=== PATIENT | female | born 1965 | race Caucasian/White ===

== ENCOUNTER 2023-06-25 17:12 | Emergency (ER) | payer OTHER, SELFPAY ==
--- NOTE | 2023-06-25 17:41 | ED.FALL ---
HPI - Fall General Chief Complaint: Fall Stated Complaint: fell,knee pain, nose bleed Time Seen by Provider: 06/25/23 18:30 Source: patient and family Mode of arrival: wheelchair Limitations: no limitations History of Present Illness HPI Narrative: 57 yo female with past medical history of HTN, HLD here with complaints of fall after she tripped over her dog. No LOC. Landed on her right knee and hit her nose on a chair. Here c/o headache, right knee pain, nasal pain/laceration. No AC therapy use. Denies chest pain, shortness of breath, abdominal pain, vision changes, nausea, vomiting, back or neck pain. Tetanus UTD. Related Data Previous Rx's Medication Instructions Recorded ibuprofen 600 mg tablet 600 mg PO Q8H PRN fever or pain 06/25/23 #30 tabs Allergies Allergy/AdvReac Type Severity Reaction Status Date / Time shellfish derived Allergy Unknown Verified 06/25/23 17:44 Review of Systems Review of Systems: Yes all other systems are reviewed and are negative Constitutional: Constitutional: Reports no additional constitutional complaints, Denies body ache(s), Denies chills, Denies fever(s), Reports headache(s) and Denies weakness Eyes: Eyes: Reports no additional eye complaints and Denies change in vision ENT: Reports system reviewed and no additional complaints, except as documented, Denies dizziness, Reports headache(s), Reports epistaxis, Denies nasal congestion, Denies nasal discharge, Reports nasal trauma and Denies neck pain Cardiovascular: Cardiovascular: Reports no additional cardiovascular complaints, Denies chest pain, Denies leg edema and Denies dyspnea Respiratory: Respiratory: Reports no additional respiratory complaints, Denies cough and Denies dyspnea Gastrointestinal: Gastrointestinal: Reports no additional gastrointestinal complaints, Denies abdominal pain, Denies diarrhea, Denies nausea and Denies vomiting Genitourinary: Genitourinary: Reports no additional female genitourinary complaints and Denies urinary incontinence Musculoskeletal: Musculoskeletal: Reports no additional musculoskeletal complaints, Denies back pain, Reports arthralgias, Denies joint swelling, Denies neck pain, Denies numbness and Denies tingling Integumentary/Breasts: Skin/Breast: Reports system reviewed and no additional complaints, except as docu and Denies rash Neurologic: Reports system reviewed and no additional complaints, except as documented, Denies Abnormal speech present, Denies dizziness, Reports headache(s), Denies numbness, Denies tingling and Denies weakness PMFSH Past Medical History Attestation statement: The following information was validated with the patient. Source: old records reviewed and nursing notes reviewed Onset Date is defined in the Problem List Problems that require an onset date and time if occurred within 24 hrs of arrival to the ED Aortic Dissection and Rupture; Neurologic impairment; Cardiopulmonary Arrest; Endotracheal Intubation; Insertion or Replacement of Mechanical Circulatory Assist Device Social History Social History Advance Directives: No Advance Directives Information Provided: No Physical Exam Vital Signs: Vital Signs: Last Vital Signs Pulse 86 06/25/23 17:43 Resp 18 06/25/23 17:43 BP 138/83 06/25/23 17:43 Pulse Ox 99 06/25/23 17:43 O2 Del Method Room Air 06/25/23 17:43 BMI result Body Mass Index 47.3 Const: General: cooperative, healthy appearing, comfortable and no acute distress Orientation/consciousness: patient oriented x3 Limitations: no limitations HEENT: Other: no hemotympanus Head: Yes normal to inspection, No Abreu's sign and No raccoon eyes Ears: hearing grossly normal bilaterally and TM's normal bilaterally General nose exam: Normal external nose present and Epistaxis present Nose image: 1. +abrasion Nasal bridge swelling, ecchymosis Face and sinus: Yes normal facial exam Mouth: Normal oral and palatal mucosa present Throat: Yes posterior oropharynx normal Eyes: General: appearance normal, both eyes and all related structures Pupils: Equal, round and reactive pupils present Neck: Neck: Yes normal visual inspection Chest: Chest palpation & inspection: normal inspection of the chest Resp: Effort & Inspection: normal respiratory effort Auscultation: clear to auscultation bilaterally Cardio: Rate: regular rate Rhythm: regular rhythm Peripheral pulses: Peripheral pulses 2+ throughout GI: Inspection: Yes normal to inspection Palpation (GI): Soft to palpation and nontender Auscultation: normal bowel sounds Back/Spine/Pelvis: Thoracic/Lumbar Spine: thoracic and lumbar spine normal to inspection Skin: General skin exam: no rashes or lesions noted Neuro: General: patient oriented x3, moves all extremities, no focal motor deficits and normal sensation to monofilament Cranial nerves: Yes CN's II-XII intact bilaterally, Yes Equal, round and reactive pupils present, Yes Bilaterally intact EOM present, Yes Nystagmus not present, Yes Normal facial strength present and Yes Midline tongue present Cognition (Neuro): normal cognition Speech: No Abnormal speech present Gait exam (Neuro): Normal gait present Motor exam (neuro): 5/5 motor strength present throughout Sensory Exam: Normal double simultaneous stimulation for sensation Extrem: Other: +ecchymosis /swelling to right anterior knee with limited flexion d/t pain 2+ DP/PT pulses Normal distal sensation FROM distal foot/ankle General: Yes normal to inspection Course Course Course Narrative: This is a rapid medical exam. Deferred additional HPI, ROS, PE to primary provider. 57 yo female with past medical history of HTN, HLD here with complaints fall after she tripped over her dog. No LOC. Here c/o headache, right knee pain, nasal pain/laceration. Tetanus UTD. Will obtain CT head/facial bones/cervical, knee x-ray. VSS Reevaluation(s) Reevaluation #1: 2042- Reviewed CT findings. reviewed x-ray results. epistaxis is controlled. patient discharged home with Jay wrap, crutches and recommendations follow up outpatient with ENT. Reviewed worrisome signs and symptoms of when to return to the emergency room. Comfortable plan for discharge home. Medications Administered Discontinued Medications Generic Name Dose Route Start Last Admin Trade Name Freq PRN Reason Stop Dose Admin Acetaminophen 975 mg 06/25/23 17:44 06/25/23 17:47 Acetaminophen 325 Mg Tablet PO 06/25/23 17:45 975 mg ONCE ONE Administration Oxycodone HCl 5 mg 06/25/23 19:12 06/25/23 19:43 Oxycodone Hcl Immed Release 5 Mg Tablet PO 06/25/23 19:13 5 mg ONCE ONE Administration Oxymetazoline HCl 2 spray 06/25/23 19:12 06/25/23 19:45 Oxymetazoline Hcl 0.05 % Nasal 15 Ml [place] NOSTRIL-B 06/25/23 19:13 2 spray ONCE ONE Administration Procedures Orthopedic Splinting/Casting Injury #1: Side: right Lower Extremity Injury Location: lower leg Lower Extremity Immobilizer: Jay wrap Other Orthopedic Equipment: crutches Medical Decision Making Medical Decision Making MDM Narrative: 57 yo female with past medical history of HTN, HLD here with complaints of fall after she tripped over her dog. No LOC. Landed on her right knee and hit her nose on a chair. Here c/o headache, right knee pain, nasal pain/laceration. No AC therapy use. Denies chest pain, shortness of breath, abdominal pain, vision changes, nausea, vomiting, back or neck pain. Tetanus UTD. +ecchymosis /swelling to right anterior knee with limited flexion d/t pain. 2+ DP/PT pulses. Normal distal sensation. FROM distal foot/ankle. Abrasion to bridge of the nose with epistaxis-slight bilaterally. Swelling/ecchymosis to bridge of the nose. Normal neuro exam. VSS Will obtain x-rays of right knee, CT head/cervical spine/facial bones Will give analgesia, afrin for epistaxis Differential Diagnosis Differential Diagnoses: The differential diagnosis associated with the presentation includes nasal fracture, contusion, ICH, physeal or skull fracture, concussion knee fracture, dislocation, vascular injury, dislocation, contusion Admission/Observation Consideration of admission/observation: Escalation of care including admission/observation considered low concern for vascular injury, dislocation, complex fracture requiring advanced imaging. Low concern for ICH, basilar skull fracture requiring neurosurgery consultation and or transfer to a tertiary care center. Independent Interpretation I performed an independent interpretation of an: Plain X-Ray and CT Scan Interpretation: I independently reviewed the x-ray/CT head/cervical spine/facial bones and agree with the radiology report Radiology Impression Discussion of test interpretation with radiology: I have reviewed the radiologist's reading. Radiologist Impression: [place] [id number] XRay Report Signed Patient: Terri De La Paz MR#: [id number] : 1965 Acct:[id number] Age/Sex: 57 / F ADM Date: 06/25/23 Loc: HO.ED Attending Dr: Ordering Physician: Mary Bridges NP Date of Service: 06/25/23 Procedure(s): XR knee RT 3V Accession Number(s): [id number] cc: Physician,Unknown ; Mary Bridges NP~ EXAMINATION: XR KNEE, RIGHT CLINICAL INFORMATION: Knee pain after fall COMPARISON: None available. TECHNIQUE: Four views of the right knee. FINDINGS: There is marked prepatellar soft tissue swelling. No fracture or joint effusion. Alignment is anatomic. Joint spaces are maintained. No abnormal soft tissue calcification. XR/XR knee RT 3V IMPRESSION: Prepatellar soft tissue swelling without fracture. [place] [id number] [place] [address] CT Scan Report Signed Patient: Terri De La Paz MR#: [id number] : 1965 Acct:[id number] Age/Sex: 57 / F ADM Date: 06/25/23 Loc: HO.ED Attending Dr: Ordering Physician: Mary Bridges NP Date of Service: 06/25/23 Procedure(s): CT facial bones wo IV con Accession Number(s): [id number] cc: Physician,Unknown ; Mary Bridges NP~ EXAMINATION: CT HEAD WITHOUT CONTRAST CT FACIAL BONES WITHOUT CONTRAST CT CERVICAL SPINE WITHOUT CONTRAST CLINICAL INFORMATION: Fall. Pain. COMPARISON: None available. TECHNIQUE: Imaging was performed from the skull base to vertex without intravenous administration of contrast. In addition, helical noncontrast CT imaging was acquired through the cervical spine and facial bones and source images were reviewed along with axial reconstructions and sagittal and coronal MPRs. This CT examination was performed using dose optimization techniques as appropriate, variously including the following: *Automated exposure control. *Adjustment of mA and/or kV according to patient size (this includes techniques or standardized protocols for targeted exams where dose is matched to indication/reason for exam; i.e. extremities or head). *Use of iterative reconstruction technique. DLP: 2033 mGy-cm FINDINGS: Head: There is no evidence of acute intracranial hemorrhage or edematous territorial infarction. Bhatia-white matter differentiation is preserved. There is no abnormal attenuation within the brain parenchyma. The ventricles are normal in morphology and size. No evidence for obstructive hydrocephalus. No abnormal mass effect or midline shift. No extra-axial fluid collections. No acute soft tissue or osseous abnormalities. Maxillofacial Bones: Mildly displaced comminuted fractures of the bilateral nasal bones. Mild to moderate rightward nasal septal deviation with apparent fracture. Layering blood products within the left greater than right maxillary sinuses and throughout the nasal passages. Moderate hematoma along the nasal bridge. No evidence of additional maxillofacial bone fractures. The zygomatic arches remain intact. No evidence of mandibular or maxillary fracture. The mandibular condyles remain well-seated in their respective temporal articular grooves. Normal appearance of the intraconal and extraconal fat. No evidence of traumatic injury to the extraocular musculature or globes. The mastoid air cells and middle ear cavities are clear. Cervical Spine: The atlantooccipital and atlantoaxial articulations remain well aligned. Moderate degenerative arthropathy of the atlantodental articulation. Straightening of the normal cervical lordosis. Otherwise, there is anatomic alignment of the vertebral bodies and posterior elements. No evidence of acute fracture or subluxation. The vertebral body heights are maintained. Advanced degenerative disc disease at C5-C6. Moderate degenerative disc disease at C6-C7. Facet and uncovertebral joint arthropathy leads to mild osseous encroachment on the neural foramina from C5-C7. There is no prevertebral soft tissue swelling. There is a 2.1 cm hypoattenuating nodule in the right thyroid lobe. The remaining cervical soft tissues are within normal limits. The lung apices demonstrate no abnormalities. CT/CT facial bones wo IV con IMPRESSION: 1. No evidence of acute intracranial hemorrhage or edematous territorial infarction. 2. No evidence of acute fracture or traumatic subluxation of the cervical spine. 3. Mildly displaced comminuted fractures of the bilateral nasal bones. Mild to moderate rightward nasal septal deviation with apparent fracture. Layering blood products within the left greater than right maxillary sinuses and throughout the nasal passages. 4. There is a 2.1 cm nodule in the right thyroid lobe. Recommend further characterization with thyroid ultrasound. Independent Historian Clinical information obtained from an independent historian. History obtained from or confirmed by: Spouse Tests considered The following testing was considered but not selected: low concern for vascular injury, dislocation, complex fracture requiring advanced imaging. Prescription Management I considered prescription management with: Pain Medication Discharge Plan Discharge Clinical Impression: Closed fracture nasal bone, Contusion of knee, right Patient Disposition: Home, Self-Care Instructions: Nasal Fracture (ED), Contusion in Adults (ED) Additional Instructions: the x-rays of your knee show no fracture. You do have some swelling on exam. You should use the Jay wrap and crutches for comfort as needed. After a few days start to perform range of motion of her knee. Apply ice, elevate the knee. Your CT of her face shows a nasal fracture. We are giving you a referral to follow-up with ear nose and throat to make sure that this is healing okay and to see if you would be a surgical candidate. Apply ice to the area. you may have some slight nose bleeding. You may apply direct pressure to this and use the spray as directed. Your CT also showed incidental finding of a thyroid nodule. You will need to follow-up with her primary care doctor for outpatient thyroid ultrasound. Please return for any severe headache, vomiting, uncontrolled nosebleed Prescriptions: New ibuprofen 600 mg tablet 600 mg PO Q8H PRN (Reason: fever or pain) Qty: 30 0RF Referrals: [facility] [Provider Group] - 1 week Physician,Unknown J [Primary Care Provider] - 1 week
[2023-06-25 17:43] VITALS: BP 138/83; PULSE 86; RESP 18; O2SAT 99; BMI 47.3
[2023-06-25 21:20] VITALS: BP 96/67; PULSE 87; RESP 20; TEMP 36.8; O2SAT 99
--- NOTE | 2023-06-25 22:20 | PC.NURSE ---
Patient now c/o of nausea and dizziness.
[2023-06-25 22:53] VITALS: BP 113/69; PULSE 83; RESP 16; O2SAT 95
--- NOTE | 2023-06-25 23:54 | PC.NURSE ---
IVF infusion has been completed. pt reports improvement in dizziness and nausea that felt s/p PO oxycodone; states this is the 2nd time she's had this medication and both times she felt the same way upon sitting upright. She has since been able to get herself dressed and ambulate to and from the restroom with use of cane but no physical assistance required. After disussion with the pt plan for allergies/adverse reactions to be updated to include oxycodone to prevent future administration if possible.
== END 2023-06-26 00:23 | disposition home or self-care (01) ==
PROVIDERS: Emergency Provider Emergency Medicine
DX: S02.2XXA Fracture of nasal bones, initial encounter for closed fracture (principal); S80.01XA Contusion of right knee, initial encounter; W01.0XXA Fall on same level from slipping, tripping and stumbling without subsequent striking against object, initial encounter; R42 Dizziness and giddiness; R51.9 Headache, unspecified; I10 Essential (primary) hypertension; Y93.9 Activity, unspecified; Y92.019 Unspecified place in single-family (private) house as the place of occurrence of the external cause; Y99.9 Unspecified external cause status
CPT/HCPCS: 70450; 70486; 72125; 73562; 96361; 96374; 99284; J2405

== ENCOUNTER 2025-03-06 14:03 | Outpatient (REF) | payer OTHER, SELFPAY ==
--- OUTSIDE RECORDS SUMMARY | 2025-03-06 17:47 | XMS_ITS | Encounter Summary ---
Author Organization [facility], Address [address] [place] [address] Phone Care Team Providers Care Boss Miner Name Role Phone Juana Rodriguez NP Primary Care Provider [phone] Encounter Details Date Type Department Care Team (Late st Contact Info) Description 11/02/2024 Office Communication [facility], - Carmen Moctezuma [address] [place] [phone] Horace Reynaga MD [address] [facility] [place] [address] Social History Tobacco Use Types Packs/Day Years Used Date Smoking Tobacco: Never Assessed Comments Unknown Sex and Gender Information Value Date Recorded Sex Assigned at Not on file Legal Sex Female 3:28 PM EDT Gender Identity Not on file Sexual Orientation Not on file documented as of this encounter Plan of Treatment Not on file documented as of this encounter Visit Diagnoses Not on filedocumented in this encounter Care Teams Boss Miner Relationship Specialty Start Date End Date Juana Rodriguez NP [address] [place] [address] PCP - General 10/31/24 documented as of this encounter
--- OUTSIDE RECORDS SUMMARY | 2025-03-06 17:47 | XMS_ITS | Encounter Summary ---
Author Organization [facility] Address [address] [place] [address] [place] [phone] Phone Care Team Providers Care Mainspring Torque Tester Name Role Phone Xiomara Padgett Primary Care Provider Ángela Mason MD Unavailable Penelope Quintanilla MD Unavailable Dodie Norman Primary Care Provider Qiana Carmichael MD Unavailable Silvana Paz MD Primary Care Provid er Juana Rodriguez NP Primary Care Provider Essence Chung Unavailable Encounter Details Date Type Department Care Team (Late st Contact Info) Description 07/03/2020 [facility], Ct Scan - [facility] [address] [place] [address] Social History Tobacco Use Types Packs/Day Years Used Date Smoking Tobacco: Never Smokeless Tobacco: Never Alcohol Use Standard Drinks/Week Comments Yes 0 (1 standard drink = 0.6 oz pur e alcohol) very little Comments No Sex and Gender Information Value Date Recorded Sex Assigned at Female 04/22/2018 1:20 PM EDT Legal Sex Female 9:41 PM EDT Gender Identity Female 04/22/2018 1:20 PM EDT Sexual Orientation Straight 04/22/2018 1: 20 PM EDT documented as of this encounter Plan of Treatment Not on file documented as of this encounter Visit Diagnoses Not on filedocumented in this encounter Care Teams Mainspring Torque Tester Relationship Specialty Start Date End Date Xiomara Padgett PA [address] [place] [address] [email or web address] PCP - General 01/23/20 05/05/21 Dodie Norman PA [address] [place] [phone] [email or web address] PCP - General Unknown Provider Specialty 05/06/21 11/10/21 Silvana Paz MD [address] [place] [phone] [email or web address] PCP - General Family Medicine 11/11/21 01/09/23 Juana Rodriguez NP [address] [place] [phone] [email or web address] PCP - General Nurse Practitioner 01/16/23 Ángela Mason MD [address] [place] [phone] [email or web address] Referring Physician Internal Medicine 04/04/20 Penelope Quintanilla MD [address] [place] [phone] [email or web address] Primary Oncologist Hematology and Oncology 04/16/20 07/05/21 Qiana Carmichael MD [address] [place] [address] [email or web address] Consulting Provider Hematology 09/19/21 12/23/22 Essence Chung MBBS [address] [place] [phone] [email or web address] Primary Oncologist Medical Oncology 03/09/24 [facility] Primary Care Physician 01/10/23 documented as of this encounter Additional Source Comments The information contained in this document represents components of the legal health record. It is not the complete legal health record.[facility]
--- OUTSIDE RECORDS SUMMARY | 2025-03-06 17:47 | XMS_ITS | Encounter Summary ---
Author Organization [facility] Address [address] [place] [phone] Phone Care Team Providers Care Lighter Captain Name Role Phone Xiomara Padgett Primary Care Provider Ángela Mason MD Unavailable Penelope Quintanilla MD Unavailable Dodie Norman Primary Care Provider Qiana Carmichael MD Unavailable Silvana Paz MD Primary Care Provid er Juana Rodriguez NP Primary Care Provider Essence Chung Unavailable [phone] Encounter Details Date Type Department Care Team (Late st Contact Info) Description 07/18/2020 Ancillary Orders Virtual Department [address] [place] [address] Xiomara Padgett PA [address] [place], [place] [phone] [email or web address] Liver lesion; Liver mass; Abnormal findings on diagnostic imaging of liver and biliary tract Social History Tobacco Use Types Packs/Day Years [...] documented as of this encounter Visit Diagnoses Diagnosis Liver lesion Other specified disorders of liver Liver mass Unspecified disorder of liver Abnormal findings on diagnostic imaging of liver and biliary tract documented in this encounter Care Teams Lighter Captain Relationship Specialty Start Date End Date Xiomara Padgett PA [address] [place] [phone] [email or web address] PCP - General 01/23/20 05/05/21 Dodie Norman PA [address] [place] [phone] [email or web address] PCP - General Unknown Provider Specialty 05/06/21 11/10/21 Silvana Paz MD [address] [place] [phone] [email or web address] PCP - General Family Medicine 11/11/21 01/09/23 Juana Rodriguez NP [address] [place] [phone] [email or web address] PCP - General Nurse Practitioner 01/16/23 Ángela Mason MD [address] [place] [phone] [email or web address] Referring Physician Internal Medicine 04/04/20 Penelope Quintanilla MD [address] [place] [phone] [email or web address] Primary Oncologist Hematology and Oncology 04/16/20 07/05/21 Qiana Carmichael MD [address] [place] [address] [email or web address] Consulting Provider Hematology 09/19/21 12/23/22 Essence Chung MBBS [address] [place] [phone] [email or web address] Primary Oncologist Medical Oncology 03/09/24 [facility] Primary Care Physician 01/10/23 documented as of this encounter Additional Source Comments The information contained in this document represents components of the legal health record. It is not the complete legal health record.[facility]
--- OUTSIDE RECORDS SUMMARY | 2025-03-06 17:47 | XMS_ITS | Encounter Summary ---
Author Organization [facility] Address [address] [place] [address] Phone Care Team Providers Care Stoper Name Role Phone Juana Rodriguez NP Primary Care Provider [phone] Encounter Details Date Type Department Care Team (Late st Contact Info) Description 10/31/2024 Documentation Only [facility], [address] [place] [address] [place], [place] [address] [place] [address] Social History Tobacco Use Types Packs/Day Years [...] on filedocumented in this encounter Care Teams Stoper Relationship Specialty Start Date End Date Juana Rodriguez NP [address] [place] [phone] PCP - General 10/31/24 documented as of this encounter
--- OUTSIDE RECORDS SUMMARY | 2025-03-06 17:47 | XMS_ITS | Encounter Summary ---
Author Organization [facility] Address [address] [place] [address] [place] [phone] Phone Care Team Providers Care Director Oncology Name Role Phone Ángela Mason MD Unavailable [phone] Juana Rodriguez SIGNAL OPERATOR TECHNICAL Primary Care Provider Essence Chung Unavailable [phone] Encounter Details Date Type Department Care Team (Late st Contact Info) Description 01/16/2024 Transcribe Orders Virtual Department [address] [place] [address] Ángela Gordon PA [address] [place] [phone] [email or web address] Breast screening (Primary Dx) Social History Tobacco Use Types Packs/Day Years Used Date Smoking Tobacco: Never Smokeless Tobacco: Never Alcohol Use Standard Drinks/Week Comments Yes 0 (1 standard drink = 0.6 oz pur e alcohol) very little Child or Family Care Answer Date Record ed Do you have problems with on e of the following making it difficult for you to work, study, or receive health care? No 07/07/2021 Education Answer Date Recorded Are you interested in more education? Not on jayme e 07/08/2023 Are you concerned about learning? Not on file 07/08/2023 No 07/08/2023 No 07/08/2023 Food Answer Date Recorded Within the past 6 months we worried whether our food would run out before we got money to buy more. Never True 07/07/2021 Within the past 6 months the food we bought just didn't last and we didn't have enough money to get more. Never True Residential Stability Answer Date Recor ded What is your housing situation today? I have jagjit jordan 07/07/2021 How many times have you move d in the past 12 months? Zero (I did not move) 07/07/2021 Paying for Meds Answer Date Recorded Do you have trouble paying for medicines? No 07/07/2021 Paying Utility Bills Answer Date Record ed Do you have trouble paying your heating or elect ricity bill? No 07/07/2021 Transportation Answer Date Recorded Has the lack of transportati on kept you from medical appointments or from getting medications? No 07/07/2021 Unemployment Answer Date Recorded Are you currently unemployed or working on a part-time or temporary basis, and looking for work? No 07/07/2021 Digital Access Answer Date Recorded No 11/15/2022 No 11/15/2022 Reliable internet access at home? Not on file 11/15/2022 Device with a working camera? Not on file Intimate Partner Violence Answer Date R ecorded Are you denied basic needs s uch as food, clothing, or medical care? No 01/16/2023 In the past 12 months have y ou been in a relationship with a person who hurts, threatens, or tries to control you? No 01/16/2023 Are you denied basic needs s uch as food, clothing, or medical care? No 01/16/2023 In the past 12 months have y ou been in a relationship with a person who hurts, threatens, or tries to control you? No 01/16/2023 Comments No Sex and Gender Information Value Date Recorded Sex Assigned at Female 04/22/2018 1:20 PM EDT Legal Sex Female 9:41 PM EDT Gender Identity Female 04/22/2018 1:20 PM EDT Sexual Orientation Straight 04/22/2018 1: 20 PM EDT documented as of this encounter Plan of Treatment Not on file documented as of this encounter Visit Diagnoses Diagnosis Breast screening- Primary Breast screening, unspecified documented in this encounter Additional Health Concerns Assessment Noted Time PHQ-2 Depression Total Score: 0 11/12/19 4:03 PM EDT documented as of this encounter Care Teams Director Oncology Relationship Specialty Start Date End Date Juana Rodriguze NP [address] [place] [phone] [email or web address] PCP - General Nurse Practitioner 01/16/23 Ángela Mason MD [email or web address] Referring Physician Internal Medicine 04/04/20 Essence Chung MBBS [address] [place] [phone] [email or web address] Primary Oncologist Medical Oncology 03/09/24 [facility] Primary Care Physician 01/10/23 documented as of this encounter Additional Source Comments The information contained in this document represents components of the legal health record. It is not the complete legal health record.[facility]
--- OUTSIDE RECORDS SUMMARY | 2025-03-06 17:47 | XMS_ITS | Encounter Summary ---
Author Organization [facility] Address [address] [place] [address] [place] [phone] Phone Care Team Providers Care Winch Truck Operator Name Role Phone Ángela Mason MD Unavailable Qiana Carmichael MD Unavailable Silvana Paz MD Primary Care Provid er Juana Rodriguez NP Primary Care Provider Essence Chung Unavailable [phone] Encounter Details Date Type Department Care Team ([facility] Contact Info) Description 01/26/2022 Procedure Pass [facility] Endoscopy Admitting Dept Virtual Department [address] [place], [place] [id number] Social History Tobacco Use Types Packs/Day Years [...] Answer Date Recorded Are you interested in help w ith more adult education (for example, completing high school, GED, job training, learning the [place] language, technical skills, or developing parenting skills)? I choose not to answer 07/07/2021 Food Answer Date Recorded Within the past [...] basis, and looking for work? No 07/07/2021 Comments No Sex and Gender Information Value Date Recorded Sex Assigned at Female 04/22/2018 1:20 PM EDT Legal Sex Female 9:41 PM EDT Gender Identity Female 04/22/2018 1:20 PM EDT Sexual Orientation Straight 04/22/2018 1: 20 PM EDT documented as of this encounter Functional Status * Calculated C-SSRS Risk Score (Lifetime/Recent) Answer Date of Assessment Author No Risk Indicated 01/26/2022 10:05 PM EDT Kanchan Gonzales RN * [place] Suicide Severity Rating Scale (Screener/Recent Self-Report) Question Answer Date of Assessment Author 1. Wish to be (Past 1 Month) No 01/26/2022 10:05 PM EDT Kanchan Gonzales, AYLIN 2. Non-Specific Active Suicidal Thoughts (Past 1 Month) No 01/26/2022 10:05 PM EDT Kanchan Gonzales, AYLIN 6. Suicidal Behavior (Lifetime) No 01/26/2022 10:05 PM EDT Kanchan Gonzales, AYLIN documented as of this encounter Plan of Treatment Not on file documented as of this encounter Visit Diagnoses Not on filedocumented in this encounter Additional Health Concerns Assessment Noted Time PHQ-2 Depression Total Score: 0 11/12/19 22 4:03 PM EDT documented as of this encounter Care Teams Winch Truck Operator Relationship Specialty Start Date End Date Silvana Paz MD [address] [place] [phone] [email or web address] PCP - General Family Medicine 11/11/21 01/09/23 Juana Rodriguez NP [address] [place] [phone] [email or web address] PCP - General Nurse Practitioner 01/16/23 Ángela Mason MD [email or web address] Referring Physician Internal Medicine 04/04/20 Qiana Carmichael MD [address] [place] [address] [email or web address] Consulting Provider Hematology 09/19/21 12/23/22 Essence Chung MBBS [address] [place] [phone] [email or web address] Primary Oncologist Medical Oncology 03/09/24 [facility] Primary Care Physician 01/10/23 documented as of this encounter Additional Source Comments The information contained in this document represents components of the legal health record. It is not the complete legal health record.[facility]
--- OUTSIDE RECORDS SUMMARY | 2025-03-06 17:47 | XMS_ITS | Clinical Summary ---
Author Organization [facility] Address [address] [place] [address] Phone Care Team Providers Care Access Director Name Role Phone Ángela Mason MD Unavailable [phone] Juana Rodriguez ELECTRICAL APPLIANCE REPAIRER Primary Care Provider Essence Chung Unavailable [phone] Allergies Active Allergy Reactions Criticality Noted Date Comments Shellfish Containing Products 2017 Throat swelling Medications multivitamins capsule as directed Active acetaminophen (TYLENOL) 325 mg tablet Take 2 tablets (650 mg total) by mouth every 4 (four) hours as needed for mild pain. 0 2 Active Additional Information Patient not taking.Reported on 05/06/2022 amLODIPine (NORVASC) 5 MG tabletIndication s:Primary hypertension Take 1 tablet (5 mg total) by mouth daily. 90 tablet 2 2 Active Additional Information Patient not taking.Reported on 04/20/2024 omeprazole (PRILOSEC) 20 MG capsule Take 1 capsule (20 mg total) by mouth daily. 30 capsule 3 Active Additional Information Patient not taking.Reported on 04/20/2024 atorvastatin (LIPITOR) 20 MG tablet Take 1 tablet by mouth every morning. 4 Active Active Problems Patient Care Coordination No te Formatting of this note migh t be different from the original. Height 173.5cm no shoes taken by OC 03/05/2021 Problem Noted Date Diagnosed Date Prolonged PTT 05/08/2024 Easy bruising 04/20/2024 Assessment & Plan (11/08/2024 9:36 AM EDT): 59-year-old female with a prior history of menorrhagia, now resolved and easy bruising with prolonged bleeding post moderate trauma in June 2023. There is no family history of hematologic disorders. CBC, PT, and von Willebrand panel negative. PTT minimally prolonged. Factors VIII, IX, XI and XII unremarkable. I answered all questions to her satisfaction. Low suspicion for functional platelet disorder but with ISTH-SSC score of 6. I recommended 04/2024 that we investigate the possibility of a plt functional disorder with plt aggregation study if approved by insurance. Pt has been off all medication that could affect plts . Hematology clearance sought by dentist and endocrine team. Would recommend close clinical follow up with tooth extraction with consideration of amicar if any prolonged oozing. I would not recommend delaying tooth extraction in this pt who previously underwent surgery and procedures with no bleeding complications. I have also placed a referral for a second opinion to [facility] hematology. Patient already gets much of her care at [facility], and it appears that some of the access issues she had trying to book an aggregation study could be avoided with a [facility] provider. She is aware of the referral and is in agreement. Will still set her up for a telehealth appointment to me in December, unless she has a transfer of care after the [facility] appointment. Will also ask clinic team to reach out again to [facility] regarding scheduling of the platelet aggregation study. Assessment & Plan (05/14/2024 3:15 PM EST): 58-year-old female with a prior history of menorrhagia, now resolved and easy bruising with prolonged bleeding post moderate trauma in June 2023. There is no family history of hematologic disorders. CBC, PT, and von Willebrand panel negative. PTT minimally prolonged. Factors VIII, IX, XI and XII unremarkable. I answered all questions to her satisfaction. Tooth extraction scheduled for May 23. Will rpt PTT. Low suspicion for functional platelet disorder but with ISTH-SSC score of 6 will investigate the possibility of a plt functional disorder with plt aggregation study if approved by insurance. Off all medication that could affect plts . Will need to notify dentist and endocrine team. Would recommend close clinical follow up with tooth extraction with consideration of amicar if any prolonged oozing. I would not recommend delaying tooth extraction in this pt who previously underwent surgery and procedures with no bleeding complications. Assessment & Plan (05/08/2024 3:18 PM EST): 58-year-old female with a prior history of menorrhagia, now resolved and easy bruising with prolonged bleeding post moderate trauma in June 2023. There is no family history of hematologic disorders. CBC, PT, and von Willebrand panel negative. PTT minimally prolonged. Will assess for clotting factors below. May need rpt PTT and mixing study also. I answered all questions to her satisfaction. Review in approximately 1-2 weeks to discuss results and any recommendations for management. Will need to notify dentist and endocrine team. Assessment & Plan (04/20/2024 5:09 PM EDT): 58-year-old female with a prior history of menorrhagia, now resolved and easy bruising with prolonged bleeding post moderate trauma in June 2023. There is no family history of hematologic disorders. At this time she will undergo testing which includes CBC, PT, PTT and von Willebrand panel. I answered all questions to her satisfaction. Review in approximately 2 weeks to discuss results and any recommendations for management. History of abnormal uterine bleeding 04/20/2024 Chronic fatigue 04/20/2024 Hirsutism 03/15/2022 Postcholecystectomy diarrhea 03/15/2022 S/P laparoscopic cholecystectomy 02/10/2022 History of depression 07/15/2021 Overview (07/15/2021): Post depression, H/o suicicide attempt, admtted to [facility] feb 2013 Mixed hyperlipidemia 07/15/2021 Overview (07/15/2021): 06/2021: The 10-year ASCVD risk score (Jeremias BAKER Jr., et al., 2013) is: 4.7% Values used to calculate the score: Age: 56 years Sex: Female Is Non- : No Diabetic: No Tobacco smoker: No Systolic Blood Pressure: 136 mmHg Is BP treated: Yes HDL Cholesterol: 44 mg/dL Total Cholesterol: 232 mg/dL ____ No statin Takes fish oil Working on weight loss diet and excercise Morbid obesity with body mass index of 45.0-49.9 in adult 05/04/2020 Assessment & Plan (07/15/2021 9:42 AM EST): Encouraged continued dietary interventions and exercise. Encourage sustainable lifestyle changes to promote sustained weight loss. We briefly discussed possibility of pharmacologic options should she not reach her weight loss goals. Abnormal uterine bleeding 05/02/2020 Assessment & Plan (07/15/2021 9:43 AM EST): Has resolved x6 months. Continue to monitor Lst Hgb 04/2021 stable 15.0 Assessment & Plan (05/04/2020 9:09 AM EST): The differential diagnosis of AUB discussed: ?Structural abnormalities - ?Iatrogenic ?Ovulatory dysfunction (AUB-O) - S/Sx and clinical findings most consistent with AUB-O/perimenopause. Morbid obesity may also be contributing factor. ?Bleeding disorders - no hx ?Neoplastic (endometrial hyperplasia or carcinoma, or uterine sarcoma) ?Infection and inflammation - Endometritis, pelvic inflammatory disease Since onset of significant symptoms in 2015, patient reports complete work-up endometrial biopsy. At this time I have suggested continuing Depo-Provera for 1 more injection. May discontinue the daily norethindrone. Follow-up visit in 2-3 months. Hypertensive disorder Assessment & Plan (07/15/2021 9:40 AM EST): BP acceptable range, continue amlodipine Assessment & Plan (04/18/2021 2:32 PM EDT): Continue lisinopril Resolved Problems Problem Noted Date Diagnosed Date Resolved Date Acute cholecystitis 01/27/2022 02/11/20 22 Calculus of gallbladder 07/15/2021 0809/2021 Choledocholithiasis 04/19/2021 02/11/20 22 Overview (07/15/2021): choledocholithiasis s/p ERCP Dr. Marrufo at [facility]; seen in consultation by Dr. Hernández as well 03/2021 cholecystectomy is planned with Dr. Ayon, once LFTs return to normal per GI reccs Assessment & Plan (07/15/2021 9:40 AM EST): Alk phos slightly elevated in April, but improving. Repeat LFTs follow up with GI on when/what LFTs are acceptable range preoperatively for cholecystectomy Right upper quadrant pain 04/17/2021 Assessment & Plan (04/18/2021 2:41 PM EDT): Presented with abdominal pain worsening present for months., found to have abnormal LFTs. LFTs were normal in October 2020 CT done June 2020 showed liver mass as well as CBD stones Patient has not had follow-up imaging Abdominal ultrasound now shows same-GI consulted. ERCP done today. Surgeon consulted MRI to look at liver mass requested for today Abdominal pain 04/17/2021 07/07/2021 Iron deficiency 04/15/2020 07/07/2021 Iron deficiency anemia due t o chronic blood loss 07/07/2021 Assessment & Plan (04/17/2021 4:35 PM EDT): Due to uterine bleeding, continues on hormone therapy, follows with ENVIRONMENTAL RESEARCH PROJECT MANAGER. Also gets periodic iron infusions at the cancer center-last infusion was in November, bleeding has stopped since November. Hemoglobin 14 Excessive bleeding in premenopausal period 07/07/2021 Encounters Date Type Department Care Team Description 01/25/2025 Orders Only [facility] Health Info Management Virtual Department [address] [place] [address] Provider, MD Robson 12/28/2024 Telephone [facility] [address] [place] [address] Saskia Klein MA from Last 3 Months Immunizations Immunization Administration Dates Next Due COVID-19 (Pre-04/11) Jarrett Vaccine, rS-Ad26, PF 09/29/2020 COVID-19 (Pre-04/11) Moderna Vaccine, mRNA, PF 06/26/2021 Hep A-Hep B 10/23/2009,09/11/2008,08/14/2008 IPV 10/23/2009 Td (adult) 5 Lf Tetanus Toxo id, PF, Adsorbed 06/26/2021 Tdap 08/20/2008 Typhoid, ViCPs 10/23/2009 Family History Medical History Relation Comments Heart disease Father s/p CABG Hypertension Father Prostate cancer Father Kidney cancer Mother s/p nephrectomy Liver cancer Mother Thyroid disease Mother Breast cancer Neg Hx Relation Status Comments Father Alive Mother Alive Son 1 Alive Son 2 Alive Social History Tobacco Use Types Packs/Day Years [...] your housing situation today? I have jagjit sing 07/07/2021 How many times have you move [...] Orientation Straight 04/22/2018 1: 20 PM EDT Last Filed Vital Signs Vital Sign Reading Time Taken Comments Blood Pressure 147/83 05/08/2024 9:09 AM EST Pulse 74 05/08/2024 9:09 AM EST Temperature 36 C (96.8 F) 05/08/2024 9:09 AM EST Respiratory Rate 19 01/16/2023 5:00 PM EDT Oxygen Saturation 97% 05/08/2024 9:09 AM EST Inhaled Oxygen Concentration - - Weight 147.5 kg (325 lb 1.6 oz) 05/08/2024 9:07 AM EST Height 173.5 cm (5' 8.31 ) 05/08/2024 9:07 AM ES T Body Mass Index 48.99 05/08/2024 9:07 AM EST Plan of Treatment Health Maintenance Due Date Last Done Comments COLOGUARD 2010 FIT TEST 2010 FOBT 2010 SIGMOIDOSCOPY 2010 VIRTUAL COLONOSCOPY 2010 PNEUMOCOCCAL VACCINES (50+ years) (1 of 1 - PCV) 2015 ZOSTER VACCINES (1 of 2) 2015 DEPRESSION SCREENING 11/11/2022 11/11/2021 MAMMOGRAM 11/12/2023 11/11/2021, 1212/2019, 11/15/2017 BLOOD PRESSURE 11/05/2024 05/08/2024 INFLUENZA VACCINE (#1) 2025 COVID-19 VACCINE ( season) 2025 06/26/2021, 09/29/2020 PAP SMEAR 05/06/2025 05/06/2022 SCREENING FOR DIABETES 04/20/2027 04/20/2024 LIPID PANEL 10/11/2029 10/11/2024, 09/0 08/2023, 07/10/2021, Additional history exists Adult Td,Tdap Booster 06/26/2031 06/26/2021, 009 COLONOSCOPY 01/27/2032 01/26/2022 COLORECTAL CANCER SCREENING 01/27/2032 HEPATITIS A VACCINES Aged Out 10/23/2009, 09/11/2008, 08/14/2008 No longer eligible based on patient's age to complete this topic HEPATITIS C SCREENING Completed 07/10/2021 HIV ONE-TIME SCREENING (18-65 YEARS) Completed 07/10/2021 SMOKING STATUS SCREENING (Once After 26 Yrs) Completed 05/08/2024 HIB VACCINES Aged Out No longer eligi ble based on patient's age to complete this topic MENINGOCOCCAL VACCINES (ACWY) Aged Out No longer eligible based on patient's age to complete this topic MENINGOCOCCAL VACCINES (B) Aged Out N o longer eligible based on patient's age to complete this topic Medical Devices Not on file Procedures Procedure Name Priority Date/Time Associated Diagnosis Comments OUTSIDE LAB Routine 12/05/2024 1:39 PM EDT LIPID PANEL Routine 10/11/2024 9:18 AM EDT Localized swelling, mass and lump, upper limb, bilateral PAP TEST Routine 05/06/2022 12:00 AM EST ENDOSCOPY, COLON 01/26/2022 10:3 6 AM EDT BI MAMMOGRAM SCREENING WITH TOMOSYNTHESIS WITH CAD (BILATERAL) Routine 11/11/2021 2:28 PM EDT Breast screening HEPATITIS C ANTIBODY, QUALITATIVE Routine 07/10/2021 8:52 AM EST Need for hepatitis C screening test from Last 3 Months or Most Recently Relevant to Health Maintenance Results * Outside Lab (12/05/2024 1:39 PM EDT) us Historical Provider LAB BLOOD ORDERABLES Katelin l Result * (ABNORMAL) Lipid panel (10/11/2024 9:18 AM EDT) HDL 41 mg/dL [facility] Comment: Interpretation <40 mg/dL: Low HDL cholesterol (major risk factor for CHD) Greater than or equal to 60 mg/dL: High HDL cholesterol ( negative risk factor for CHD) HDL - cholesterol is affected by a number of factors, e.g. smoking, excerise, hormones, sex and age. CHOLESTEROL 183 0 - 240 mg/dL [facility] TRIGLYCERIDES 146 30 - 160 mg/dL [facility] LDL 113 50 - 129 mg/dL [facility] Comment: LDL levels in terms of risk for coronary heart disease: <100 mg/dL: Optimal 100-129 mg/dL: Near or above optimal 130-159 mg/dL: Borderline high 160-189 mg/dL: High >190 mg/dL: Very High CARDIAC RISK RATIO 4.5(H) 3.3 - 4.4 C [facility] Blood 10/11/2024 9:18 AM EDT 10/11/2024 9:47 AM EDT Dodie Copeland MD LAB BLOOD ORDERABLES Final R esult [address] [address] * Pap Smear (05/06/2022 12:00 AM EST) 05/06/2022 05/10/2022 Narrative [facility] - 06/01/2022 11:52 AM EST CASE: [id number] PATIENT: ETRRI DE LA PAZ Date: 1965 Sex: F [facility] Department of Pathology [address] [place] [address] CLIA License No.: [id number] Hand Model: Yash Ortega MD, PhD Physician: JESSIKA GUDINO MD Procedure Date: 05/06/2022 Plasterer Foreman: CRISTIAN Nunez ([facility]) ENVIRONMENTAL RESEARCH PROJECT MANAGER Molecular Addendum THINPREP PAP TEST, CERVICAL FINAL CYTOLOGIC INTERPRETATION SPECIMEN ADEQUACY: Satisfactory for evaluation; transformation zone present. INTERPRETATION: NEGATIVE FOR INTRAEPITHELIAL LESION OR MALIGNANCY. AUTOMATED REVIEW: This specimen was prescreened using the ThinPrep Imaging System. CLINICAL DATA LMP: 12/2020; Post-menopausal; BMI 46 hx irregular uterine bleeding TOTAL SLIDES 1 PROCEDURES Screening or High Risk ThinPrep with Auto Pre-Screen - [facility] 1 Final Diagnosis by Bekah FOSTER ([facility]), Electronically signed on May at 01:18:30PM ADDENDUM HPV TEST: Negative for messenger RNA (mRNA) of the high-risk human papillomavirus (HPV) types 16, 18, 31, 33, 35, 39, 45, 51, 52, 56, 58, 59, 66, and 68 by Aptima HPV assay. [facility] Molecular Diagnostics & Histocompatibility Lab [place] [address] CLIA License #: [id number] Hand Model: Joaquin Longoria MD Final Diagnosis by Bekah OFSTER ([facility]), on May at 01:18:30PM HPV Addendum by Stevenson WREN ([facility]), Electronically signed on Wednesday June 01, 2022 at 11:50:55AM us Jessika Gudino MD CYTOLOGY ORDERABLES Edite d Result - Final Performing Organization Address City/State/[facility] Co de Phone Number [facility] [address] [place] [address] * ENDOSCOPY, COLON (01/26/2022 10:36 AM EDT) Narrative Transcriptions Felix Silva MD - 01/26/2022 10:36 AM EDT Patient Name: Terri Singh Brain Attending MD:: FELIX SILVA MD, Procedure Date: 01/26/2022 10:36 AM Date of : 1965 Age: 56 Admit Type: Outpatient Gender: Female Room: [facility] 05 Referring MD: Silvana Paz Exam Type: Colonoscopy Indications: Screening for colorectal malignant neoplasm Medications: Monitored Anesthesia Care Procedure: Informed consent was obtained from the patientafter discussion of the indications, limitations, alternatives, benefits, and risks of the procedure. Risks specifically discussed include but are not limited to medication reactions, missed lesions, bleeding, perforation, or the need for emergent surgery. Throughout the procedure, the patient's blood pressure, pulse, end-tidal CO2, and oxygensaturations were monitored continuously. The Olympus adult variable colonoscope [id number] #3 was introduced through the anus and advanced to the cecum, identified by appendiceal orifice andileocecal valve. The colonoscopy was performed without difficulty. The patient tolerated the procedurewell. The quality of the bowel preparation was excellent. The quality of the bowel preparation was evaluated using the BBPS ([place] Bowel Preparation Scale)with scores of: Right Colon = 3, Transverse Colon = 3and Left Colon = 3 (entire mucosa seen well with no residual staining, small fragments of stool oropaque liquid). The total BBPS score equals 9. Anatomical landmarks were photographed. Complications: No immediate complications. Estimated blood loss:None. Findings: The perianal and digital rectal examinations were normal. Internal hemorrhoids were found duringretroflexion. The hemorrhoids were mild. The exam was otherwise normal throughout theexamined colon. Impression: - Internal hemorrhoids. - No specimens collected. Recommendation: - Discharge patient to home. - Repeat colonoscopy in 10 years for screening purposes. FELIX SILVA MD, 01/26/2022 10:54:05 AM This report has been signed electronically. Number of Addenda: 0 Note Initiated On: 01/26/2022 10:36 AM Procedure Code(s): --- Professional --- 22977, Colonoscopy, flexible; diagnostic, including collection of specimen(s) by brushing or washing, when performed (separateprocedure) --- Technical --- 63838, Colonoscopy, flexible; diagnostic, including collection of specimen(s) by brushing or washing, when performed (separateprocedure) Diagnosis Code(s): --- Professional --- Z12.11, Encounter for screening for malignantneoplasm of colon K64.8, Other hemorrhoids --- Technical --- Z12.11, Encounter for screening for malignantneoplasm of colon K64.8, Other hemorrhoids CPT copyright 2020 [employer]. All rights reserved. The codes documented in this report are preliminary and upon information coder reviewmay be revised to meet current compliance requirements. Procedure Date: 01/26/2022 10:36:[address] [place] [address] Silvana Paz MD GI PROCEDURE ORDERAB LES Final Result * BI MAMMOGRAM SCREENING WITH TOMOSYNTHESIS WITH CAD (BILATERAL) (11/11/2021 2:28 PM EDT) Anatomical Region Laterality Modality Breast Left, Breast Right, Breast Bilateral Bila teral Mammography 11/11/2021 6:44 PM EDT Impressions 11/11/2021 6:47 PM EDT BILATERAL BREASTS: Negative, no evidence of malignancy. Normal interval follow- up is recommended in 12 months. Bi-RADS: BI-RADS CATEGORY: 1 - Negative. DENSITY: There are scattered fibroglandular densities. Narrative 11/11/2021 6:47 PM EDT STUDY: Bilateral screening mammography with tomosynthesis and CAD TECHNIQUE: Bilateral full-field digital screening mammography is obtained and read in conjunction with computer-aided detection. Tomosynthesis as well as 2-D C view imaging were obtained. COMPARISON: Comparison made to multiple prior, most recent June 05, 2020, and most remote September 09, 2009. BREAST COMPOSITION: There are scattered areas of fibroglandular density BILATERAL BREASTS: No significant masses, suspicious calcifications or other abnormalities are seen. Procedure Note Karl Pantoja MD - 11/11/2021 STUDY: Bilateral screening mammography with tomosynthesis and CAD TECHNIQUE: Bilateral full-field digital screening mammography is obtainedand read in conjunction with computer-aided detection. Tomosynthesis aswell as 2-D C view imaging were obtained. COMPARISON: Comparison made to multiple prior, most recent May, and most remote September 09, 2009. BREAST COMPOSITION: There are scattered areas of fibroglandulardensity BILATERAL BREASTS: No significant masses, suspicious calcifications orother abnormalities are seen. IMPRESSION: BILATERAL BREASTS: Negative, no evidence of malignancy. Normal intervalfollow-up is recommended in 12 months. Bi-RADS: BI-RADS CATEGORY: 1 - Negative. DENSITY: There are scattered fibroglandular densities. us Provider Not In System PhD IMG MG EXAMS Final Result * Hepatitis C antibody, qualitative (07/10/2021 8:52 AM EST) HCV NON-REACTIV E NON-REACTI VE [facility] Blood 07/10/2021 8:52 AM EST 07/10/2021 8:58 AM EST us Silvana Paz MD LAB BLOOD ORDERABLES Final Result [facility] [address] [place] [address] from Last 3 Months or Most Recently Relevant to Health Maintenance Insurance [employer] PPO CIGNA PPO CIGNA PPO Member Subscriber Plan / Payer ( fective 2002-Present) Name:Terri Mo Relation to Subscriber:Self Name:Terri Mo Payer ID:[id number] (NAIC) Type:PPO Address: [address] [place] [id number] CIGNA PPO CIGNA PPO CIGNA PPO CIGNA PPO CIGNA PPO CIGNA PPO Advance Directives For more information, please contact: [phone] (9AM - 5PM [facility], Tuesday-Tuesday) Documents on File Type Date Recorded Patient Bill Of Lading Clerk Expl anation Healthcare Proxy 04/20/2021 5:58 PM * Full Code (Latest Code Status on File) Date Activated Date Inactivated Comments 01/27/2022 12:40 PM Question Answer Comments Code Status Confirmed With: Patient * Full Code Date Activated Date Inactivated Comments 01/27/2022 1:28 AM 01/27/2022 12:40 PM Question Answer Comments Code Status Confirmed With: Patient * Full Code Date Activated Date Inactivated Comments 04/17/2021 7:53 PM 01/27/2022 1:28 AM Question Answer Comments Code Status Confirmed With: Other (specify below ) Healthcare Agents on File Name Relationship Healthcare Agent Tiawohi oliver Communication Negro De La Paz Spouse .Primary Health Care Agent (Proxy form on file) Care Teams Access Director Relationship Specialty Start Date End Date Juana Rodriguez NP [address] [place] [phone] [email or web address] PCP - General Nurse Practitioner 01/16/23 Ángela Mason MD [email or web address] Referring Physician Internal Medicine 04/04/20 Essence Chung MBBS [address] [place] [id number] Primary Oncologist Medical Oncology 03/09/24 [facility] Primary Care Physician 01/10/23 Additional Source Comments The information contained in this document represents components of the legal health record. It is not the complete legal health record.[facility]
--- OUTSIDE RECORDS SUMMARY | 2025-03-06 17:47 | XMS_ITS | Encounter Summary ---
Author Organization [facility] Address [address] [place] [address] Phone Care Team Providers Care Energy Scheduler Name Role Phone LucasPia barnhart Kaitlynn [place] Primary Care Provider Pcp, Unknown Primary Care Provider Unavailabl Xiomara Brito Primary Care Provider Ángela Mason MD Unavailable Penelope Quintanilla MD Unavailable Dodie Norman Primary Care Provider Qiana Carmichael MD Unavailable Silvana Paz MD Primary Care Provid er Juana Rodriguez NP Primary Care Provider Essence Chung Unavailable Encounter Details Date Type Department Care Team (Late st Contact Info) Description 09/26/2017 Ancillary Orders Virtual Department [address] [place] [address] Self-Referred, Patient Breast screening Social History Tobacco Use Types Packs/Day Years [...] on file documented as of this encounter Results * BI MAMMOGRAM SCREENING WITH TOMOSYNTHESIS WITH CAD (BILATERAL) (11/15/2017 9:49 AM EDT) Anatomical Region Laterality Modality Breast Left, Breast Right, Breast Bilateral Bila teral Mammography 11/15/2017 10:0 6 AM EDT Impressions 11/15/2017 10:17 AM EDT No mammographic evidence of malignancy. Recommend routine annual surveillance. BI-RADS CATEGORY: 2 - Benign finding. DENSITY: There are scattered fibroglandular densities. POS - CDHMAMA Narrative 11/15/2017 10:17 AM EDT 52-year-old female with no current breast symptoms. Comparison made to previous on 12/10/2014 and as far back as 06/22/2005. Interpretation made in conjunction with computer-aided detection and tomosynthesis. There are scattered areas of fibroglandular density. Stable small left retroareolar nodule which may represent a lymph node and benign right breast macrocalcification. There are no suspicious masses, areas of architectural distortion, or suspicious clusters of microcalcifications. Procedure Note Maurilio Sweeney MD - 11/15/2017 52-year-old female with no current breast symptoms. Comparison made toprevious on 12/10/2014 and as far back as 06/22/2005. Interpretation madein conjunction with computer-aided detection and tomosynthesis. There are scattered areas of fibroglandular density. Stable small leftretroareolar nodule which may represent a lymph node and benign rightbreast macrocalcification. There are no suspicious masses, areas of architectural distortion, orsuspicious clusters of microcalcifications. IMPRESSION: No mammographic evidence of malignancy. Recommend routine annualsurveillance. BI-RADS CATEGORY: 2 - Benign finding. DENSITY: There are scattered fibroglandular densities. POS - CDHMAMA us Patient Self-Referred IMG MG EXAMS Final Resu lt documented in this encounter Visit Diagnoses Diagnosis Breast screening Breast screening, unspecified Breast screening Breast screening, unspecified documented in this encounter Care Teams Energy Scheduler Relationship Specialty Start Date End Date Pia Vincent DO [address] [place] [address], [address] [place] [address] [email or web address] PCP - General Family Medicine 09/26/17 01/11/19 Pcp, Unknown PCP - General 01/12/19 01/22/20 Xiomara Padgett PA [address] [place] [phone] [email or web address] PCP - General 01/23/20 05/05/21 Dodie Norman PA [address] [place] [address] [email or web address] PCP - General Unknown Provider Specialty 05/06/21 11/10/21 Silvana Paz MD [address] [place] [address] [email or web address] PCP - General Family Medicine 11/11/21 01/09/23 Juana Rodriguez NP [address] [place] [phone] [email or web address] PCP - General Nurse Practitioner 01/16/23 Ángela Mason MD [address] [place] [address] [email or web address] Referring Physician Internal Medicine 04/04/20 Penelope Quintanilla MD [address] [place] [address] [email or web address] Primary Oncologist Hematology and Oncology 04/16/20 07/05/21 Qiana Carmichael MD [address] [place] [address] [email or web address] Consulting Provider Hematology 09/19/21 12/23/22 Essence Chung MBBS [address] [place] [address] [email or web address] Primary Oncologist Medical Oncology 03/09/24 [facility] Primary Care Physician 01/10/23 documented as of this encounter Additional Source Comments The information contained in this document represents components of the legal health record. It is not the complete legal health record.[facility]
--- OUTSIDE RECORDS SUMMARY | 2025-03-06 17:47 | XMS_ITS | Encounter Summary ---
Author Organization [facility] Address [address] [place] [address] Phone Care Team Providers Care Justice Court Judge Name Role Phone Pcp, Unknown Primary Care Provider Unavailabl e Xiomara Padgett Primary Care Provider Ángela Mason MD Unavailable [phone] Penelope Quintanilla MD Unavailable Dodie Norman Primary Care Provider Qiana Carmichael MD Unavailable Silvana Paz MD Primary Care Provid er Juana Rodriguez NP Primary Care Provider Essence Chung Unavailable Encounter Details Date Type Department Care Team (Late st Contact Info) Description 03/27/2019 Ancillary Orders Virtual Department [address] [place] [address] Xiomara Padgett PA [address] [place], [place] [phone] [email or web address] Breast screening Social History Tobacco Use Types Packs/Day Years Used Date Smoking Tobacco: Never Smokeless Tobacco: Never Alcohol Use Standard Drinks/Week Comments Yes 0 (1 standard drink = 0.6 oz pur e alcohol) very little Comments Unknown Sex and Gender Information Value Date Recorded Sex Assigned at Female 04/22/2018 1:20 PM EDT Legal Sex Female 9:41 PM EDT Gender Identity Female 04/22/2018 1:20 PM EDT Sexual Orientation Straight 04/22/2018 1: 20 PM EDT documented as of this encounter Plan of Treatment Not on file documented as of this encounter Visit Diagnoses Diagnosis Breast screening Breast screening, unspecified documented in this encounter Care Teams Justice Court Judge Relationship Specialty Start Date End Date Pcp, Unknown PCP - General 01/12/19 01/22/20 Xiomara Padgett PA [address] [place] [phone] [email or web address] PCP - General 01/23/20 05/05/21 Dodie Norman PA [address] [place] [address] [email or web address] PCP - General Unknown Provider Specialty 05/06/21 11/10/21 Silvana Paz MD [address] [place] [address] [email or web address] PCP - General Family Medicine 11/11/21 01/09/23 Juana Rodriguez NP [address] [place] [phone] [email or web address] PCP - General Nurse Practitioner 01/16/23 Ángela aMson MD [address] [place] [address] [email or web address] Referring Physician Internal Medicine 04/04/20 Penelope Quintanilla MD [address] [place] [address] [email or web address] Primary Oncologist Hematology and Oncology 04/16/20 07/05/21 Qiana Carmichael MD [address] [place] [address] [email or web address] Consulting Provider Hematology 09/19/21 12/23/22 Essence Chung MBBS [address] [place] [address] [email or web address] Primary Oncologist Medical Oncology 03/09/24 [facility] Primary Care Physician 01/10/23 documented as of this encounter Additional Source Comments The information contained in this document represents components of the legal health record. It is not the complete legal health record.[facility]
--- OUTSIDE RECORDS SUMMARY | 2025-03-06 17:47 | XMS_ITS | Encounter Summary ---
Author Organization [facility] Address [address] [address] [place] [address] Phone Care Team Providers Care Supervisor Felling Bucking Name Role Phone Ángela Mason MD Unavailable Qiana Carmichael MD Unavailable [phone] Silvana Paz MD Primary Care Provid er Juana Rodriguez NP Primary Care Provider Essence Chung Unavailable [phone] Encounter Details Date Type Department Care Team ([facility] st Contact Info) Description 06/24/2022 Procedure Pass [facility], Ct Scan - [address] [address] Social History Tobacco Use Types Packs/Day Years [...] high school, GED, job training, learning the Montenegrin language, technical skills, or developing parenting skills)? [...] Date of Assessment Author No Risk Indicated 06/24/2022 8:50 AM Stephanie Smyth RN * [place] Suicide Severity Rating Scale (Screener/Recent Self-Report) Question Answer Date of Assessment Author 1. Wish to be (Past 1 Month) No 023 8:50 AM Stephanie Smyth, AYLIN 2. Non-Specific Active Suici bobby Thoughts (Past 1 Month) No 06/24/2022 8:50 AM Stephanie Smyth, AYLIN 6. Suicidal Behavior (Lifetime) No 3 8:50 AM Stephanie Smyth, AYLIN documented as of this encounter Plan of Treatment Not on file documented as of this encounter Visit Diagnoses Not on filedocumented in this encounter Additional Health Concerns Assessment Noted Time PHQ-2 Depression Total Score: 0 11/12/19 22 4:03 PM EDT documented as of this encounter Care Teams Supervisor Felling Bucking Relationship Specialty Start Date End Date Silvana Paz MD [address] [address] [email or web address] PCP - General Family Medicine 11/11/21 01/09/23 Juana Rodriguez NP [address] [place] [phone] [email or web address] PCP - General Nurse Practitioner 01/16/23 Ángela Mason MD [email or web address] Referring Physician Internal Medicine 04/04/20 Qiana Carmichael MD [address] [place] [address] [email or web address] Consulting Provider Hematology 09/19/21 12/23/22 Essence Chung MBBS [address] [place] [address] [email or web address] Primary Oncologist Medical Oncology 03/09/24 [facility] Primary Care Physician 01/10/23 documented as of this encounter Additional Source Comments The information contained in this document represents components of the legal health record. It is not the complete legal health record.[facility]
--- OUTSIDE RECORDS SUMMARY | 2025-03-06 17:47 | XMS_ITS | Encounter Summary ---
Author Organization [facility] Address [address] [place] [address] [place] [address] Phone Care Team Providers Care Customer Service Clerk Name Role Phone Xiomara Padgett Primary Care Provider [phone] Ángela Mason MD Unavailable Penelope Quintanilla MD Unavailable Dodie Norman Primary Care Provider Qiana Carmichael MD Unavailable Silvana Paz MD Primary Care Provid er Juana Rodriguez NP Primary Care Provider Essence Chung Unavailable Encounter Details Date Type Department Care Team (Late st Contact Info) Description 04/23/2021 Procedure Pass [facility], [facility] [address] [place] [address] Social History Tobacco Use Types Packs/Day Years [...] documented as of this encounter Care Teams Customer Service Clerk Relationship Specialty Start Date End Date Xiomara Padgett PA [address] [place] [address] [email or web address] PCP - General 01/23/20 05/05/21 Dodie Norman PA [address] [place] [address] [email or web address] PCP - General Unknown Provider Specialty 05/06/21 11/10/21 Silvana Paz MD [address] [place] [address] [email or web address] PCP - General Family Medicine 11/11/21 01/09/23 Juana Rodriguez NP [address] [place] [phone] [email or web address] PCP - General Nurse Practitioner 01/16/23 Ángela Mason MD [address] [place] [address] [email or web address] Referring Physician Internal Medicine 04/04/20 Penelope Quintanilla MD [address] [place] [address] [email or web address] Primary Oncologist Hematology and Oncology 04/16/20 07/05/21 Qiana Carmichael MD [address] [place] [address] [email or web address] Consulting Provider Hematology 09/19/21 12/23/22 Essence Chung MBBS [address] [place] [address] [email or web address] Primary Oncologist Medical Oncology 03/09/24 [facility] Primary Care Physician 01/10/23 documented as of this encounter Additional Source Comments The information contained in this document represents components of the legal health record. It is not the complete legal health record.[facility]
--- OUTSIDE RECORDS SUMMARY | 2025-03-06 17:47 | XMS_ITS | Encounter Summary ---
Author Organization [facility] Address [address] [place] [address] [place] [address] Phone Care Team Providers Care General Merchandise Manager Name Role Phone Ángela Mason MD Unavailable [phone] Qiana Carmichael MD Unavailable Silvana Paz MD Primary Care Provid er Juana Rodriguez NP Primary Care Provider Essecne Chung Unavailable [phone] Reason for Referral * MRI/CAT Scan - Closed Specialty Diagnoses / Procedures Referred By Memo velazco Referred To Contact Radiology Diagnoses Liver mass Procedures CT Abdomen Only (No Pelvis) CHG CT SCAN OF ABDOMEN CONTRAST CHG CT SCAN OF ABDOMEN Felix Marin MD Phone: tel: fax: [email or web address] Referral ID Status Reason Start Date Expiration Date Visits Re quested Visits Authorized [id number] Closed 11/18/2021 02/16/2022 1 1 Encounter Details Date Type Department Care Team (Latest Contact Info) Description 11/26/2021 Transcribe Orders Virtual Department [address] [place], [place] [phone] Felix Pratt MD [address] [place] [phone] [email or web address] Liver mass (Primary Dx) Social History Tobacco Use Types [...] high school, GED, job training, learning the Indonesian language, technical skills, or developing parenting skills)? [...] documented as of this encounter Results * CT ABDOMEN WITH AND WITHOUT CONTRAST (12/17/2021 11:11 AM EDT) Anatomical Region Laterality Modality Abdomen, Abdominal Vasculature C omputed Tomography 12/17/2021 11:1 7 AM EDT Impressions 12/17/2021 11:31 AM EDT 1.The previously seen liver lesion is not evident on today's examination. No suspicious or enhancing hepatic lesions. 2.Mild hepatic steatosis. 3.Cholelithiasis. 4.Small hiatal hernia. Narrative 12/17/2021 11:[address] ABDOMEN WITH AND WITHOUT CONTRAST TECHNIQUE: Multidetector-row CT of the abdomen was performed before and after administration of intravenous contrast using tailored dose modulation techniques. Images were reconstructed in the axial, coronal, and sagittal planes COMPARISON: MRI dated 04/19/2021 FINDINGS: Lower Chest: Small hiatal hernia. No consolidation or pleural effusions. Liver: Mild hepatic steatosis. There is a 7 mm right hepatic lobe cyst as seen on MRI. No other focal lesions. The previously seen liver lesion is not evident on today's examination. Biliary: Cholelithiasis again seen. No significant gallbladder wall thickening or pericholecystic fluid Spleen: Normal. No splenomegaly or focal lesions. Pancreas: Normal. No masses or ductal dilatation. Adrenal Glands: Normal. No nodules. Kidneys/Ureters: Normal. No solid masses, stones, or hydronephrosis. Bowel: Normal. No dilatation or wall thickening. Peritoneum/Retroperitoneum: Normal. No masses, pneumoperitoneum, or fluid. Lymph Nodes: Normal. No lymphadenopathy. Vessels: Atherosclerotic calcifications of the nondilated abdominal aorta are seen. Bones/Soft Tissues: No destructive osseous lesions. Procedure Note Kiesha Rivera MD - 12/17/2021 CT ABDOMEN WITH AND WITHOUT CONTRAST TECHNIQUE: Multidetector-row CT of the abdomen was performed before andafter administration of intravenous contrast using tailored dosemodulation techniques. Images were reconstructed in the axial, coronal,and sagittal planes COMPARISON: MRI dated 04/19/2021 FINDINGS: Lower Chest: Small hiatal hernia. No consolidation or pleural effusions. Liver: Mild hepatic steatosis. There is a 7 mm right hepatic lobe cyst asseen on MRI. No other focal lesions. The previously seen liver lesion isnot evident on today's examination. Biliary: Cholelithiasis again seen. No significant gallbladder wallthickening or pericholecystic fluid Spleen: Normal. No splenomegaly or focal lesions. Pancreas: Normal. No masses or ductal dilatation. Adrenal Glands: Normal. No nodules. Kidneys/Ureters: Normal. No solid masses, stones, or hydronephrosis. Bowel: Normal. No dilatation or wall thickening. Peritoneum/Retroperitoneum: Normal. No masses, pneumoperitoneum, orfluid. Lymph Nodes: Normal. No lymphadenopathy. Vessels: Atherosclerotic calcifications of the nondilated abdominal aortaare seen. Bones/Soft Tissues: No destructive osseous lesions. IMPRESSION: 1.The previously seen liver lesion is not evident on today's examination.No suspicious or enhancing hepatic lesions. 2.Mild hepatic steatosis. 3.Cholelithiasis. 4.Small hiatal hernia. Felix Pratt MD IMG CT XSPECIALTY ORDERABLES Fin al Result documented in this encounter Visit Diagnoses Diagnosis Liver mass- Primary Unspecified disorder of liver Liver mass Unspecified disorder of liver documented in this encounter Additional Health Concerns Assessment Noted Time PHQ-2 Depression Total Score: 0 11/12/19 22 4:03 PM EDT documented as of this encounter Care Teams General Merchandise Manager Relationship Specialty Start Date End Date Silvana Paz MD [address] [place] [phone] [email or web address] PCP - General Family Medicine 11/11/21 01/09/23 Juana Rodriguez NP [address] [place] [phone] [email or web address] PCP - General Nurse Practitioner 01/16/23 Ángela Mason MD [email or web address] Referring Physician Internal Medicine 04/04/20 Qiana Carmichael MD [address] [place] [address] [email or web address] Consulting Provider Hematology 09/19/21 12/23/22 Essence Chung MBBS [address] [place] [address] [email or web address] Primary Oncologist Medical Oncology 03/09/24 [facility] Primary Care Physician 01/10/23 documented as of this encounter Additional Source Comments The information contained in this document represents components of the legal health record. It is not the complete legal health record.[facility]
--- OUTSIDE RECORDS SUMMARY | 2025-03-06 17:47 | XMS_ITS | Encounter Summary ---
Author Organization [facility] Address [address] [place] [address] [address] [place] [address] Phone Care Team Providers Care Intelligence Group Supervisor Name Role Phone Ángela Mason MD Unavailable [phone] Juana Rodriguez CORRECTIONAL SUPPLY SUPERVISOR Primary Care Provider Essence Chung Unavailable [phone] Encounter Details Date Type Department Care Team (Late st Contact Info) Description 10/03/2024 Ancillary Orders Virtual Department [address] [place] [address] Francisca Benavides MD [address] [place] [phone] Localized edema (Primary Dx) Social History Tobacco Use Types [...] documented as of this encounter Results * US ABDOMEN LIMITED RIGHT UPPER QUADRANT (10/03/2024 11:00 AM EDT) Anatomical Region Laterality Modality Abdomen Ultrasound 10/03/2024 11:3 6 AM EDT Impressions 10/03/2024 11:42 AM EDT 1. Echogenic liver, most compatible with fatty liver. 2. Cholecystectomy. Narrative 10/03/2024 11:42 AM EDT US ABDOMEN LIMITED RIGHT UPPER QUADRANT Referring clinician's provided indication for this examination in [facility]: Outside Radiology Order; Fatty liver/steatohepatitis TECHNIQUE: US Abdominal limited right upper quadrant. COMPARISON: CT ABDOMEN/PELVIS WITH CONTRAST ; US ABDOMEN LIMITED RIGHT UPPER QUADRANT FINDINGS: Liver: Diffusely increased echogenicity consistent with fatty liver. Main Portal Vein: Patent with normal direction of flow. Gallbladder: Cholecystectomy. Biliary: Normal. No intrahepatic or extrahepatic biliary ductal dilatation. The common bile duct measures 4 mm. Exam limited by body habitus. No right hydronephrosis. Procedure Note Leesa Ventura MD - 10/03/2024 US ABDOMEN LIMITED RIGHT UPPER QUADRANT Referring clinician's provided indication for this examination in [facility]:Outside Radiology Order; Fatty liver/steatohepatitis TECHNIQUE: US Abdominal limited right upper quadrant. COMPARISON: CT ABDOMEN/PELVIS WITH CONTRAST ; US ABDOMENLIMITED RIGHT UPPER QUADRANT FINDINGS: Liver: Diffusely increased echogenicity consistent with fatty liver. Main Portal Vein: Patent with normal direction of flow. Gallbladder: Cholecystectomy. Biliary: Normal. No intrahepatic orextrahepatic biliary ductal dilatation. The common bile duct measures 4 mm. Exam limited by body habitus. No right hydronephrosis. IMPRESSION: 1. Echogenic liver, most compatible with fatty liver. 2. Cholecystectomy. us Francisca Benavides MD [facility] US ABDOMEN Final Resul t documented in this encounter Visit Diagnoses Diagnosis Localized edema Edema Localized edema- Primary Edema documented in this encounter Additional Health Concerns Assessment Noted Time PHQ-2 Depression Total Score: 0 11/12/19 22 4:03 PM EDT documented as of this encounter Care Teams Intelligence Group Supervisor Relationship Specialty Start Date End Date Juana Rodriguezy, CORRECTIONAL SUPPLY SUPERVISOR [address] [place] [phone] [email or web address] PCP - General Nurse Practitioner 01/16/23 Ángela Mason MD [email or web address] Referring Physician Internal Medicine 04/04/20 Essence Chung MBBS [address] [place] [address] [email or web address] Primary Oncologist Medical Oncology 03/09/24 [facility] Primary Care Physician 01/10/23 documented as of this encounter Additional Source Comments The information contained in this document represents components of the legal health record. It is not the complete legal health record.[facility]
--- OUTSIDE RECORDS SUMMARY | 2025-03-06 17:47 | XMS_ITS | Clinical Summary ---
Author Organization [facility], Address [address] [phone] Phone Care Team Providers Care Bisque Kiln Placer Name Role Phone Juana Rodriguez NP Primary Care Provider Social History Tobacco Use Types Packs/Day Years Used Date Smoking Tobacco: Never Assessed Comments Unknown Sex and Gender Information Value Date Recorded Sex Assigned at Not on file Legal Sex Female 3:28 PM EDT Gender Identity Not on file Sexual Orientation Not on file Plan of Treatment Health Maintenance Due Date Last Done Comments Breast Cancer Screening 1965 Pneumococcal Vaccine: 50+ Ye ars (1 of 2 - PCV) 1984 Colorectal Cancer Screening: Annual FOBT 2014 Colorectal Cancer Screening: Colonoscopy 2014 Colorectal Cancer Screening: Sigmoidoscopy 2014 Influenza Vaccine (#1) 2025 Hepatitis B Vaccine Completed 10/23/2009, 09/11/2008, 08/14/2008 Insurance [employer] Open Access ([id number]) Care Teams Bisque Kiln Placer Relationship Specialty Start Date End Date Juana Rodriguez NP [address] [place] [address] [facility] - General 10/31/24
--- OUTSIDE RECORDS SUMMARY | 2025-03-06 17:47 | XMS_ITS | Encounter Summary ---
Author Organization [facility] Address [address] [place] [address] [place] [address] Phone Care Team Providers Care Field Seismologist Name Role Phone Xiomara Padgett Primary Care Provider Ángela Mason MD Unavailable Penelope Quintanilla MD Unavailable Dodie Norman Primary Care Provider Qiana Carmichael MD Unavailable Silvana Paz MD Primary Care Provid er Juana Rodriguez NP Primary Care Provider Essence Chung Unavailable Encounter Details Date Type Department Care Team (Late st Contact Info) Description 03/18/2020 Procedure Pass [facility], [facility] [address] [place] [address] Social History Tobacco Use Types Packs/Day Years [...] on filedocumented in this encounter Care Teams Field Seismologist Relationship Specialty Start Date End Date Xiomara Padgett PA [address] [place] [address] [email or web address] PCP - General 01/23/20 05/05/21 Dodie Norman PA [address] [place] [address] [email or web address] PCP - General Unknown Provider Specialty 05/06/21 11/10/21 Silvana Paz MD [address] [place] [address] [email or web address] PCP - General Family Medicine 11/11/21 01/09/23 Juana Rodriguez NP [address] [place] [phone] [email or web address] PCP - General Nurse Practitioner 01/16/23 Ángela Mason MD [address] [place] [address] [email or web address] Referring Physician Internal Medicine 04/04/20 Penelope Quintanilla MD [address] [place] [address] [email or web address] Primary Oncologist Hematology and Oncology 04/16/20 07/05/21 Qiana Carmichael MD [address] [place] [address] [email or web address] Consulting Provider Hematology 09/19/21 12/23/22 Essence Chung MBBS [address] [place] [address] [email or web address] Primary Oncologist Medical Oncology 03/09/24 [facility] Primary Care Physician 01/10/23 documented as of this encounter Additional Source Comments The information contained in this document represents components of the legal health record. It is not the complete legal health record.[facility]
--- OUTSIDE RECORDS SUMMARY | 2025-03-06 17:47 | XMS_ITS | Encounter Summary ---
Author Organization [facility] Address [address] [place] [address] [address] [place] [address] Phone Care Team Providers Care Paste Worker Name Role Phone Ángela Mason MD Unavailable [phone] Juana Rodriguez NP Primary Care Provider Essence Chung Unavailable [phone] Reason for Referral * Outpatient Procedure - Closed Specialty Diagnoses / Procedures Referred By Memo velazco Referred To Contact Radiology Diagnoses Localized swelling, mass and lump, upper limb, bilateral Procedures US Upper Extremity Arteries Duplex Complete (Bilateral) Dodie Copeland MD [address] [place] [address], [facility] [address] [place] [address] Phone: tel: fax: mailto:[email or web address] Referral ID Status Reason Start Date Expiration Date Visits Re quested Visits Authorized [id number] Closed 03/27/2024 03/27/2025 1 1 Encounter Details Date Type Department Care Team ([facility] st Contact Info) Description 03/27/2024 Transcribe Orders Virtual Department 30 [place] [address] Dodie Copeland MD [address] [place] [address], [facility] [address] [place] [address] Localized swelling, mass and lump, upper limb, bilateral (Primary Dx) Social History Tobacco Use Types [...] as of this encounter Results * US Upper Extremity Arteries Duplex Complete (Bilateral) (04/10/2024 10:29 AM EDT) Anatomical Region Laterality Modality Ultrasound 04/10/2024 4:39 PM EDT Impressions 04/12/2024 8:34 AM EDT No evidence of flow-limiting arterial stenosis identified affecting either upper extremity. Narrative 04/12/2024 8:34 AM EDT US UPPER EXTREMITY ARTERIES DUPLEX COMPLETE (BILATERAL) Referring clinician's provided indication for this examination in Epic: Outside Radiology Order; SWELLING TECHNIQUE: A duplex ultrasound evaluation of the bilateral upper extremity arteries was performed using a combination of grayscale, color duplex, and spectral Doppler. COMPARISON: No relevant comparison imaging. FINDINGS: Uniform color-flow signal within upper extremity arterial system bilaterally. High resistance waveforms are noted with diminished diastolic flow. Peak systolic velocities are within the range of normal bilaterally. Images of the carotid artery bilaterally show normal color-flow signal and flow velocity although full diagnostic evaluation of the carotid arteries was not performed. Peak systolic velocity right subclavian, right axillary proximal and distal brachial arteries are 44-83, 86, 168 and 126 cm/s. Flow velocities within the proximal mid and distal radial artery and ulnar artery are 71, 90 and 74 cm/s and 49, 88 and 91 cm/s. These values on the left are 58-182, 158, 157 and 111 cm/s within the proximal and distal subclavian artery, axillary artery and proximal and distal brachial artery. Proximal mid and distal radial artery and ulnar artery are as follows: 76, 92 and 76 cm/s and 76, 58 and 73 cm/s. Procedure Note Jerry Walker MD - 04/12/2024 US UPPER EXTREMITY ARTERIES DUPLEX COMPLETE (BILATERAL) Referring clinician's provided indication for this examination in [facility]:Outside Radiology Order; SWELLING TECHNIQUE: A duplex ultrasound evaluation of the bilateral upper extremityarteries was performed using a combination of grayscale, color duplex, andspectral Doppler. COMPARISON: No relevant comparison imaging. FINDINGS: Uniform color-flow signal within upper extremity arterial systembilaterally. High resistance waveforms are noted with diminished diastolicflow. Peak systolic velocities are within the range of normalbilaterally. Images of the carotid artery bilaterally show normal color-flow signal andflow velocity although full diagnostic evaluation of the carotid arterieswas not performed. Peak systolic velocity right subclavian, right axillaryproximal and distal brachial arteries are 44-83, 86, 168 and 126 cm/s.Flow velocities within the proximal mid and distal radial artery and ulnarartery are 71, 90 and 74 cm/s and 49, 88 and 91 cm/s. These values on the left are 58-182, 158, 157 and 111 cm/s within theproximal and distal subclavian artery, axillary artery and proximal anddistal brachial artery. Proximal mid and distal radial artery and ulnarartery are as follows: 76, 92 and 76 cm/s and 76, 58 and 73 cm/s. IMPRESSION: No evidence of flow-limiting arterial stenosis identified affecting eitherupper extremity. Dodie Copeland MD [facility] VASCULAR Final Result documented in this encounter Visit Diagnoses Diagnosis Localized swelling, mass and lump, upper limb, bilateral- Primary Localized swelling, mass and lump, upper limb, bilateral documented in this encounter Additional Health Concerns Assessment Noted Time PHQ-2 Depression Total Score: 0 11/12/19 22 4:03 PM EDT documented as of this encounter Care Teams Paste Worker Relationship Specialty Start Date End Date Juana Rodriguez NP [address] [place] [phone] [email or web address] PCP - General Nurse Practitioner 01/16/23 Ángela Mason MD [email or web address] Referring Physician Internal Medicine 04/04/20 Essence Chung MBBS [address] [place] [address] [email or web address] Primary Oncologist Medical Oncology 03/09/24 [facility] Primary Care Physician 01/10/23 documented as of this encounter Additional Source Comments The information contained in this document represents components of the legal health record. It is not the complete legal health record.[facility]
--- OUTSIDE RECORDS SUMMARY | 2025-03-06 17:47 | XMS_ITS | Encounter Summary ---
Author Organization [facility] Address [address] [place] [address] [place] [address] Phone Care Team Providers Care Hyperbaric Welder Diver Name Role Phone Xiomara Padgett Primary Care Provider [phone] Ángela Mason MD Unavailable [phone] Penelope Quintanilla MD Unavailable Dodie Norman Primary Care Provider [phone] Qiana Carmichael MD Unavailable Silvana Paz MD Primary Care Provid er Juana Rodriguez NP Primary Care Provider Essence Chung Unavailable Encounter Details Date Type Department Care Team ([facility] Contact Info) Description 04/02/2020 Procedure Pass [facility]oscopy Admitting Dept Virtual Department 30 [place] [address] Social History Tobacco Use Types Packs/Day Years [...] on filedocumented in this encounter Care Teams Hyperbaric Welder Diver Relationship Specialty Start Date End Date Xiomara Padgett PA 6 [place] [address] [email or web address] PCP - General 01/23/20 05/05/21 Dodie Norman PA [address] [place] [address] [email or web address] PCP - General Unknown Provider Specialty 05/06/21 11/10/21 Silvana Paz MD [address] [place] [address] [email or web address] [email or web address][facility] PCP - General Family Medicine 11/11/21 01/09/23 Juana Rodriguez NP [address] [place] [phone] [email or web address] PCP - General Nurse Practitioner 01/16/23 Ángela Mason MD [address] [place] [address] [email or web address]. du Referring Physician Internal Medicine 04/04/20 Penelope Quintanilla MD [address] [place] [phone] [email or web address] Primary Oncologist Hematology and Oncology 04/16/20 07/05/21 Qiana Carmichael MD [address] [place] [address] [email or web address] Consulting Provider Hematology 09/19/21 12/23/22 Essence Chung MBBS [address] [place] [address] [email or web address] Primary Oncologist Medical Oncology 03/09/24 [facility] Primary Care Physician 01/10/23 documented as of this encounter Additional Source Comments The information contained in this document represents components of the legal health record. It is not the complete legal health record.[facility]
--- OUTSIDE RECORDS SUMMARY | 2025-03-06 17:47 | XMS_ITS | Encounter Summary ---
Author Organization [facility] Address [address] [place] [address] Phone Care Team Providers Care Mortgage Loan Closer Name Role Phone Xiomara Padgett Primary Care Provider Ángela Mason MD Unavailable Penelope Quintanilla MD Unavailable Dodie Norman Primary Care Provider Qiana Carmichael MD Unavailable Silvana Paz MD Primary Care Provid er Juana Rodriguez NP Primary Care Provider Essence Chung Unavailable Encounter Details Date Type Department Care Team (Late st Contact Info) Description 07/17/2020 Ancillary Orders Virtual Department [address] [place] [address] Xiomara Padgett PA [address] [place], [place] [phone] [email or web address] Liver lesion; Liver mass Social History Tobacco Use Types Packs/Day Years [...] disorder of liver documented in this encounter Care Teams Mortgage Loan Closer Relationship Specialty Start Date End Date Xiomara Padgett PA [address] [place] [address] [email or web address] PCP - General 01/23/20 05/05/21 Dodie Norman PA [address] [place] [address] [email or web address] PCP - General Unknown Provider Specialty 05/06/21 11/10/21 Silvana Paz MD [address] [place] [address] [email or web address] PCP - General Family Medicine 11/11/21 01/09/23 Juana Rodriguez NP [address] [place] [address] [phone] [email or web address] PCP - General Nurse Practitioner 01/16/23 Ángela Mason MD [address] [place] [address] [email or web address] finn Referring Physician Internal Medicine 04/04/20 Penelope Quintanilla MD [address] [place] [phone] [email or web address] Primary Oncologist Hematology and Oncology 04/16/20 07/05/21 Qiana Carmichael MD [address] [place] [address] [email or web address]@[email or web address] Consulting Provider Hematology 09/19/21 12/23/22 Essence Chung MBBS [address] [place] [address] [email or web address] Primary Oncologist Medical Oncology 03/09/24 [facility] Primary Care Physician 01/10/23 documented as of this encounter Additional Source Comments The information contained in this document represents components of the legal health record. It is not the complete legal health record.[facility]
--- OUTSIDE RECORDS SUMMARY | 2025-03-06 17:47 | XMS_ITS | Encounter Summary ---
Author Organization [facility] Address [address] [place] [address] [place] [address] Phone Care Team Providers Care Malt Specifications Control Assistant Name Role Phone Xiomara Padgett Primary Care Provider Ángela Mason MD Unavailable [phone] Penelope Quintanilla MD Unavailable Dodie Norman Primary Care Provider [phone] Qiana Carmichael MD Unavailable Silvana Paz MD Primary Care Provid er Juaan Rodriguez NP Primary Care Provider Essence Chung Unavailable [phone] Encounter Details Date Type Department Care Team (Late st Contact Info) Description 04/18/2021 Procedure Pass [facility], [address] [address] Social History Tobacco Use Types Packs/Day Years [...] on filedocumented in this encounter Care Teams Malt Specifications Control Assistant Relationship Specialty Start Date End Date Xiomara Padgett PA [address] [place] [address] [email or web address] PCP - General 01/23/20 05/05/21 Dodie Norman PA [address] [place] [address] [email or web address] PCP - General Unknown Provider Specialty 05/06/21 11/10/21 Silvana Paz MD [address] [place] [address] [email or web address] [email or web address] Softwarepiedmont [facility] PCP - General Family Medicine 11/11/21 01/09/23 Juana Rodriguez NP [address] [place] [address] [phone] [email or web address] PCP - General Nurse Practitioner 01/16/23 Ángela Mason MD [address] [place] [address] [email or web address] Referring Physician Internal Medicine 04/04/20 Penelope Quintanilla MD [address] [place] [phone] [email or web address] Primary Oncologist Hematology and Oncology 04/16/20 07/05/21 Qiana Carmichael MD [address] [place] [address] [email or web address] Consulting Provider Hematology 09/19/21 12/23/22 Essence Chung MBBS [address] [place] [address] [email or web address] Primary Oncologist Medical Oncology 03/09/24 [facility] Primary Care Physician 01/10/23 documented as of this encounter Additional Source Comments The information contained in this document represents components of the legal health record. It is not the complete legal health record.[facility]
--- OUTSIDE RECORDS SUMMARY | 2025-03-06 17:47 | XMS_ITS | Encounter Summary ---
Author Organization [facility] Address [address] [facility] [address] [place] [address] Phone Care Team Providers Care Paper Sheeter Name Role Phone Ángela Mason MD Unavailable Qiana Carmichael MD Unavailable Silvana Paz MD Primary Care Provid er Juana Rodriguez NP Primary Care Provider Essence Chung Unavailable [phone] Encounter Details Date Type Department Care Team ([facility] st Contact Info) Description 11/26/2021 Procedure Pass [facility], Ct Scan - [address] [address] Social History Tobacco Use Types Packs/Day Years [...] high school, GED, job training, learning the Tunisian language, technical skills, or developing parenting skills)? [...] documented as of this encounter Care Teams Paper Sheeter Relationship Specialty Start Date End Date Silvana Paz MD [address] [place] [address] [email or web address] PCP - General Family Medicine 11/11/21 01/09/23 Juana Rodriguez NP [address] [place] [phone] [email or web address] PCP - General Nurse Practitioner 01/16/23 Ángela Mason MD [email or web address] Referring Physician Internal Medicine 04/04/20 Qiana Carmichael MD [address] [place] [address] [email or web address]@[email or web address] Consulting Provider Hematology 09/19/21 12/23/22 Essence Chung MBBS [address] [place] [address] [email or web address] Primary Oncologist Medical Oncology 03/09/24 [facility] Primary Care Physician 01/10/23 documented as of this encounter Additional Source Comments The information contained in this document represents components of the legal health record. It is not the complete legal health record.[facility]
--- OUTSIDE RECORDS SUMMARY | 2025-03-06 17:47 | XMS_ITS | Encounter Summary ---
Author Organization [facility] Address [address] [place] [address] [place] [address] Phone Care Team Providers Care Senior Net Software Developer Name Role Phone Xiomara Padgett Primary Care Provider [phone] Ángela Mason MD Unavailable Penelope Quintanilla MD Unavailable Dodie Norman Primary Care Provider Qiana Carmichael MD Unavailable [phone] Silvana Paz MD Primary Care Provid er Juana Rodriguez NP Primary Care Provider Essence Chung Unavailable [phone] Encounter Details Date Type Department Care Team ([facility] Contact Info) Description 04/18/2021 Procedure Pass [place] Admitting Dept - Virtual Department [address] [place] [address] Social History Tobacco Use Types Packs/Day Years [...] on filedocumented in this encounter Care Teams Senior Net Software Developer Relationship Specialty Start Date End Date Xiomara Padgett PA [address] [place] [address] [email or web address] PCP - General 01/23/20 05/05/21 Dodie Norman PA [address] [place] [address] [email or web address] PCP - General Unknown Provider Specialty 05/06/21 11/10/21 Silvana Paz MD [address] [place] [address] [email or web address] medical center PCP - General Family Medicine 11/11/21 01/09/23 Juana Rodriguez NP [address] [place] [address] [phone] [email or web address] PCP - General Nurse Practitioner 01/16/23 Ángela Mason MD [address] [place] [address] [email or web address] Referring Physician Internal Medicine 04/04/20 Penelope Quintanilla MD [address] [place] [phone] [email or web address] Primary Oncologist Hematology and Oncology 04/16/20 07/05/21 Qiana Carmichael MD [address] [place] [phone] [email or web address]@[email or web address] Consulting Provider Hematology 09/19/21 12/23/22 Essence Chung MBBS [address] [place] [address] [email or web address] Primary Oncologist Medical Oncology 03/09/24 [facility] Primary Care Physician 01/10/23 documented as of this encounter Additional Source Comments The information contained in this document represents components of the legal health record. It is not the complete legal health record.[facility]
--- OUTSIDE RECORDS SUMMARY | 2025-03-06 17:47 | XMS_ITS | Encounter Summary ---
Author Organization [facility] Address [address] [facility] [address] [place] [address] Phone Care Team Providers Care Log Cutter Name Role Phone Ángela Mason MD Unavailable [phone] Qiana Carmichael MD Unavailable Silvana Paz MD Primary Care Provid er Juana Rodriguez NP Primary Care Provider Essence Chung Unavailable [phone] Encounter Details Date Type Department Care Team ([facility] st Contact Info) Description 01/26/2022 Procedure Pass [facility], Ct Scan - [address] [address] Social History Tobacco Use Types Packs/Day Years [...] high school, GED, job training, learning the Qatari language, technical skills, or developing parenting skills)? [...] 10:05 PM EDT Kanchan Gonzales RN * [place] Suicide Severity Rating Scale (Screener/Recent Self-Report) Question Answer Date of Assessment Author 1. Wish to be (Past 1 Month) No 01/26/2022 10:05 PM EDT Kanchan Gonzales RN 2. Non-Specific Active Suicidal Thoughts (Past 1 Month) No 01/26/2022 10:05 PM EDT Kanchan Gonzales RN 6. Suicidal Behavior (Lifetime) No 01/26/2022 10:05 PM EDT Kanchan Gonzales RN documented as of this encounter Plan of Treatment Not on file documented as of this encounter Visit Diagnoses Not on filedocumented in this encounter Additional Health Concerns Assessment Noted Time PHQ-2 Depression Total Score: 0 11/12/19 22 4:03 PM EDT documented as of this encounter Care Teams Log Cutter Relationship Specialty Start Date End Date Silvana Paz MD [address] [place] [address] [email or web address] PCP - General Family Medicine 11/11/21 01/09/23 Juana Rodriguez NP [address] [place] [phone] [email or web address] PCP - General Nurse Practitioner 01/16/23 Ángela Mason MD [email or web address] Referring Physician Internal Medicine 04/04/20 Qiana Carmichael MD [address] [place] [address] [email or web address] Consulting Provider Hematology 09/19/21 12/23/22 Essence Chung MBBS [address] [place] [address] [email or web address] Primary Oncologist Medical Oncology 03/09/24 [facility] Primary Care Physician 01/10/23 documented as of this encounter Additional Source Comments The information contained in this document represents components of the legal health record. It is not the complete legal health record.[facility]
--- OUTSIDE RECORDS SUMMARY | 2025-03-06 17:47 | XMS_ITS | Encounter Summary ---
Author Organization [facility] Address [address] [place] [address] [place] [phone] Phone Care Team Providers Care Slitter And Rewinder Name Role Phone Ángela Mason MD Unavailable Penelope Quintanilla MD Unavailable Dodie Norman Primary Care Provider [phone] Qiana Carmichael MD Unavailable Silvana Paz MD Primary Care Provid er Juana Rodriguez NP Primary Care Provider Essence Chung Unavailable Encounter Details Date Type Department Care Team ([facility] Contact Info) Description 06/08/2021 Procedure Pass OR Admitting Dept - Virtual Department [address] [place] [address] Social History Tobacco Use Types Packs/Day Years [...] on filedocumented in this encounter Care Teams Slitter And Rewinder Relationship Specialty Start Date End Date Dodie Norman PA [address] [place] [phone] [email or web address] PCP - General Unknown Provider Specialty 05/06/21 11/10/21 Silvana Paz MD [address] [place] [address] [email or web address] PCP - General Family Medicine 11/11/21 01/09/23 Juana Rodriguez NP [address] [place] [phone] [email or web address] PCP - General Nurse Practitioner 01/16/23 Ángela Mason MD [email or web address] Referring Physician Internal Medicine 04/04/20 Penelope Quintanilla MD [address] [place] [address] [email or web address] Primary Oncologist Hematology and Oncology 04/16/20 07/05/21 Qiana Carmichael MD [address] [place] [address] [email or web address] Consulting Provider Hematology 09/19/21 12/23/22 Essence Chung MBBS [address] [place] [phone] Primary Oncologist Medical Oncology 03/09/24 [facility] Primary Care Physician 01/10/23 documented as of this encounter Additional Source Comments The information contained in this document represents components of the legal health record. It is not the complete legal health record.[facility]
--- OUTSIDE RECORDS SUMMARY | 2025-03-06 17:47 | XMS_ITS | Encounter Summary ---
Author Organization [facility] Address [address] [place] [address] [address] [place] [address] Phone Care Team Providers Care Cloth Feeder Name Role Phone Xiomara Padgett Primary Care Provider Ángela Mason MD Unavailable Penelope Quintanilla MD Unavailable Dodie Norman Primary Care Provider [phone] Qiana Carmichael MD Unavailable [phone] Silvana Paz MD Primary Care Provid er Juana Rodriguez NP Primary Care Provider Essence Chung Unavailable Reason for Referral * MRI/CAT Scan - Closed Specialty Diagnoses / Procedures Referred By Memo velazco Referred To Contact Radiology Diagnoses Hematuria, unspecified type Procedures CT Abdomen/Pelvis CHG CT SCAN,ABDOMENT AND PELVIS,COMBO Xiomara Padgett PA [address] [place] [address] Phone: tel: fax: [email or web address] Referral ID Status Reason Start Date Expiration Date Visits Re quested Visits Authorized [id number] Closed 06/30/2020 12/27/2020 1 1 Encounter Details Date Type Department Care Team (Late st Contact Info) Description 07/03/2020 Transcribe Orders Virtual Department [address] [place] [address] Xiomara Padgett PA [address] [place] [phone] [email or web address] Hematuria, unspecified type (Primary Dx) Social History Tobacco Use Types [...] as of this encounter Results * CT ABDOMEN/PELVIS WITH AND WITHOUT CONTRAST (07/15/2020 2:28 PM EST) Anatomical Region Laterality Modality Abdomen, Pelvis Computed Tomogra phy 07/15/2020 3:00 PM EST Impressions 07/15/2020 3:18 PM EST 1. Irregularly-shaped, nonenhancing segment 4 liver mass does not appear to be a typical cyst. Hepatic MRI recommended for further evaluation. 2. Cholelithiasis and choledocholithiasis, without evidence of acute cholecystitis or biliary obstruction. POS - [id number] Narrative 07/15/2020 3:18 PM EST Automated Exposure Control. Multiplanar reconstructions. Water as oral contrast. Initially non-enhanced exam from adrenals to pelvic floor. Next portal venous phase contrast-enhanced exam of entire abdomen and pelvis. Lastly 8 minute delays from adrenals to the pelvic floor. Multiplanar reconstructions all phases. No comparison FINDINGS: No intrarenal, ureteral or bladder calculi. Neither collecting system is dilated. No cystic or solid renal masses, signs of pyelonephritis or perinephric fluid collections. No urothelial lesions in either collecting system. No bladder wall thickening or focal masses/filling defects. There is a 2.2 x 4.2 x 2.7 cm irregularly-shaped hypodense mass in hepatic segment 4 just above the gallbladder fossa. This does not appear to enhance significantly and cannot be dismissed as a hemangioma or benign cyst. Liver MRI is recommended for further evaluation. No other liver lesions. Multiple calcified gallstones and there appear to be at least 3 5-6 mm stones in the mid common bile duct though no biliary dilatation is present. Gallbladder wall is not thickened and no hyperemia or pericholecystic fluid is present. No pancreatic masses or inflammatory changes. No splenomegaly or masses. No gynecologic pathology. No adenopathy or ascites. No bowel pathology allowing for lack of oral contrast. Normal appendix well seen. No acute or worrisome bony abnormalities Procedure Note Peewee Kerr MD - 07/15/2020 Automated Exposure Control. Multiplanar reconstructions. Water as oral contrast. Initially non-enhanced exam from adrenals to pelvic floor. Next portal venous phase contrast-enhanced exam of entire abdomen andpelvis. Lastly 8 minute delays from adrenals to the pelvic floor. Multiplanar reconstructions all phases. No comparison FINDINGS: No intrarenal, ureteral or bladder calculi. Neither collecting system isdilated. No cystic or solid renal masses, signs of pyelonephritis or perinephricfluid collections. No urothelial lesions in either collecting system. No bladder wall thickening or focal masses/filling defects. There is a 2.2 x 4.2 x 2.7 cm irregularly-shaped hypodense mass in hepaticsegment 4 just above the gallbladder fossa. This does not appear toenhance significantly and cannot be dismissed as a hemangioma or benigncyst. Liver MRI is recommended for further evaluation. No other liver lesions. Multiple calcified gallstones and there appear to be at least 3 5-6 mmstones in the mid common bile duct though no biliary dilatation ispresent. Gallbladder wall is not thickened and no hyperemia orpericholecystic fluid is present. No pancreatic masses or inflammatory changes. No splenomegaly or masses. No gynecologic pathology. No adenopathy or ascites. No bowel pathology allowing for lack of oral contrast. Normal appendixwell seen. No acute or worrisome bony abnormalities IMPRESSION: 1. Irregularly-shaped, nonenhancing segment 4 liver mass does not appearto be a typical cyst. Hepatic MRI recommended for further evaluation. 2. Cholelithiasis and choledocholithiasis, without evidence of acutecholecystitis or biliary obstruction. POS - [id number] Xiomara CLIFFORD IM CT ABD/PELVIS Final Result documented in this encounter Visit Diagnoses Diagnosis Hematuria, unspecified type- Primary Hematuria, unspecified type documented in this encounter Care Teams Cloth Feeder Relationship Specialty Start Date End Date Xiomara Padgett PA [address] [place] [phone] [email or web address] PCP - General 01/23/20 05/05/21 Dodie Norman PA [address] [place] [phone] [email or web address] PCP - General Unknown Provider Specialty 05/06/21 11/10/21 Silvana Paz MD [address] [place] [phone] [email or web address] PCP - General Family Medicine 11/11/21 01/09/23 Juana Rodriguez NP [address] [place] [phone] [email or web address] [email or web address] - General Nurse Practitioner 01/16/23 Ángela Mason MD [address] [place] [phone] [email or web address] Referring Physician Internal Medicine 04/04/20 Penelope Quintanilla MD [address] [place] [address] [email or web address] Primary Oncologist Hematology and Oncology 04/16/20 07/05/21 Qiana Carmichael MD [address] [place] [address] [email or web address] Consulting Provider Hematology 09/19/21 12/23/22 Essence Chung MBBS [address] [place] [phone] [email or web address] Primary Oncologist Medical Oncology 03/09/24 [facility] Primary Care Physician 01/10/23 documented as of this encounter Additional Source Comments The information contained in this document represents components of the legal health record. It is not the complete legal health record.[facility]
--- OUTSIDE RECORDS SUMMARY | 2025-03-06 17:48 | XMS_ITS | Encounter Summary ---
Author Organization [facility] Address [address] [place] [address] [place] [phone] Phone Care Team Providers Care Platen Grinder Name Role Phone Ángela Mason MD Unavailable Qiana Carmichael MD Unavailable Silvana Paz MD Primary Care Provid er Juana Rodriguez NP Primary Care Provider Essence Chung Unavailable [phone] Encounter Details Date Type Department Care Team ([facility] Contact Info) Description 01/27/2022 Procedure Pass OR Admitting Dept - Virtual Department [address] [place] [phone] Social History Tobacco Use Types Packs/Day Years [...] documented as of this encounter Care Teams Platen Grinder Relationship Specialty Start Date End Date Silvana Paz MD [address] [place] [phone] [email or web address] PCP - General Family Medicine 11/11/21 01/09/23 Juana Rodriguez NP [address] [place] [phone] [email or web address] - General Nurse Practitioner 01/16/23 Ángela Mason MD [email or web address] Referring Physician Internal Medicine 04/04/20 Qiana Carmichael MD [address] [place] [address] [email or web address] Consulting Provider Hematology 09/19/21 12/23/22 Essence Chung MBBS [address] [place] [phone] [email or web address] Primary Oncologist Medical Oncology 03/09/24 [facility] Primary Care Physician 01/10/23 documented as of this encounter Additional Source Comments The information contained in this document represents components of the legal health record. It is not the complete legal health record.[facility]
== END 2025-03-06 14:04 | disposition home or self-care (01) ==
LOC: HO.MAMMO 14:03
PROVIDERS: Visit Provider Family Medicine
DX: Z12.31 Encounter for screening mammogram for malignant neoplasm of breast (principal)
CPT/HCPCS: 77063; 77067

== ENCOUNTER → 2025-03-06 14:15 | Outpatient (BNV) | payer OTHER, SELFPAY | PROVIDERS: Visit Provider Radiology Body Imaging | DX: Z12.31 Encounter for screening mammogram for malignant neoplasm of breast (principal) | CPT/HCPCS: 77063; 77067 ==